=== PATIENT | female | born 1975 | race Caucasian/White ===

== ENCOUNTER 2019-08-11 12:12 | Emergency (ER) | payer SELFPAY ==
[2019-08-11] MEDS ORDERED: ONDANSETRON 4 MG/2 ML VIAL ONE (12:33)
[2019-08-11] MEDS ORDERED: MORPHINE 4 MG/ML SYR ONE (12:33)
[2019-08-11 12:56] LABS: Absolute Lymphocytes (CBC) 2.3 K/uL (0.7-4.9); Basophils % 0.7 % (0-1.3); Hematocrit 36.1 % (36.0-45.0); Lymphocytes % 19.9 % (15.3-44.8); MPV 8.1 fL (7.6-11.3); RBC Red Blood Cell Count 3.74 M/uL (3.86-4.86)
[2019-08-11 13:13] LABS: Potassium 4.1 mmol/L (3.5-5.1)
[2019-08-11] MEDS ORDERED: FENTANYL CITR 100 MCG/2 ML ONE (13:22)
[2019-08-11] MEDS ORDERED: KETOROLAC 30 MG/ML INJ ONE (13:22)
[2019-08-11] MEDS ORDERED: HYDROMORPHONE HCL 1 MG/ML INJ ONE ×2 (13:53→15:20)
[2019-08-11 14:11] LABS: Urine Blood 1+ (NEG); Urine Glucose NEGATIVE (NEG); Urine Protein TRACE (NEG); Urine Specific Gravity >1.030 (1.005-1.030); Urine pH 5.5 (5.0-7.0)
--- NOTE | 2019-08-11 14:27 | RAD REPORT ---
EXAM DESCRIPTION: CT - Stone Protocol - 08/11/2019 1:35 pm CLINICAL HISTORY: Abdominal pain, left flank pain COMPARISON: April 2011 CT imaging TECHNIQUE: Axial 5 mm thick images were obtained without oral or IV contrast. The [id number] span s the entirety of the system including uppermost abdomen and lung bases. All CT scans are performed using dose optimization technique as appropriate and may include automated exposure control or mA/KV adjustment according to patient size. FINDINGS: Mild left-sided hydronephrosis is present secondary to a 3 mm stone at the UVJ. Stone proj ects partly into the bladder lumen. At 5 millimeter parenchymal calcification is present lower pole l eft kidney. No other renal calculi. No other bladder calculi. Numerous phleboliths are seen along the pelvic floor. Uterus is absent. Ovaries are absent or atrophic. An adnexal mass is not identified. No suspicious re nal masses. Isodense masses and pyelonephritis are not excluded on a stone protocol CT scan. No urina ry bladder suspicious finding. No significant adrenal finding. Imaged portions of the liver, spleen and pancreas show no suspicious findings on non-contrast imaging . No gallbladder or biliary tree abnormality identified. No suspicious bowel findings. No hernia, mass or bulky lymphadenopathy noted. No free air, free fluid or inflammatory stranding. No significant bony abnormality. IMPRESSION: Mild left-sided hydronephrosis secondary to a 3 mm stone at the left UVJ. Isodense masses and pyelonephritis are not excluded on stone protocol technique.
--- NOTE | 2019-08-11 15:17 | ER ---
Nurse's Notes [facility] Name: Heather Nixon Age: 43 yrs Sex: Female : 1975 Arrival Date: 08/11/2019 Time: 12:14 Bed 18 Private MD: Obed Wong H Diagnosis: left UVJ stone with associated hydrnephrosis;ureterolithiasis Presentation: 08/11 12:29 Presenting complaint: Patient states: severe left flank pain, hx of stones. Transition la1 of care: patient was not received from another setting of care. Onset of symptoms was August 11, 2019. Risk Assessment: Do you want to hurt yourself or someone else? Patient reports no desire to harm self or others. Initial Sepsis Screen: Does the patient meet any 2 criteria? No. Patient's initial sepsis screen is negative. Does the patient have a suspected source of infection? No. Patient's initial sepsis screen is negative. Care prior to arrival: None. 12:29 Method Of Arrival: Ambulatory la1 12:29 Acuity: KASHIF 3 la1 Triage Assessment: 12:30 General: Appears in no apparent distress. uncomfortable, Behavior is cooperative, bp appropriate for age, anxious. Pain: Complains of pain in back. EENT: No deficits noted. Neuro: No deficits noted. Cardiovascular: No deficits noted. Respiratory: No deficits noted. GI: No signs and/or symptoms were reported involving the gastrointestinal system. : Reports pain flank(s). Derm: No deficits noted. Musculoskeletal: No deficits noted. 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 - Social history:: Smoking status: Patient/guardian denies using tobacco. - Ebola Screening: : No symptoms or risks identified at this time. - Family history:: not pertinent. - Hospitalizations: : No recent hospitalization is reported. Screenin:38 Abuse screen: Denies threats or abuse. Nutritional screening: No deficits noted. la1 Tuberculosis screening: No symptoms or risk factors identified. Fall Risk None identified. Assessment: 12:37 General: Appears in no apparent distress. uncomfortable, Behavior is cooperative, la1 anxious. Pain: Complains of pain in back and abdomen. Neuro: Level of Consciousness is awake, alert, obeys commands, Oriented to person, place, time, situation. Cardiovascular: Capillary refill < 3 seconds Patient's skin is warm and dry. Respiratory: Airway is patent Respiratory effort is even, unlabored, Respiratory pattern is regular, symmetrical. GI: Abdomen is round non-distended, Bowel sounds present X 4 quads. Abd is soft and non tender X 4 quads. : No signs and/or symptoms were reported regarding the genitourinary system. 13:30 Reassessment: PT RETURNED FROM CT, RESULTS PENDING. bp 15:37 Reassessment: PT D/C HOME AMBULATORY WITH FAMILY, DX WITH OBSTRUCTIVE UVJ STONE. bp Vital Signs: 12:30 BP 109 / 74; Pulse 74; Resp 16; Temp 97.4; Pulse Ox 100% on R/A; la1 13:48 BP 127 / 78; Pulse 77; Resp 16; Pulse Ox 97% ; bp 14:30 BP 125 / 64; Pulse 67; Resp 16; Pulse Ox 98% ; bp 15:36 BP 130 / 73; Pulse 74; Resp 16; Temp 97.5; Pulse Ox 97% ; bp ED Course: 12:14 Patient arrived in ED. mr 12:15 Obed Wong DO is Private Physician. mr 12:30 Triage completed. la1 12:31 Arm band placed on right wrist. la1 12:36 Inserted saline lock: 20 gauge in right antecubital area, using aseptic technique. la1 Blood collected. 12:38 Patient has correct armband on for positive identification. la1 12:54 Dean Limon, [place] is Primary Nurse. bp 13:00 Sabas Molina MD is Attending Physician. wa 13:36 CT Stone Protocol In Process Unspecified. EDMS 15:15 Vernon Woodall MD is Referral Physician. wa 15:31 No provider procedures requiring assistance completed. IV discontinued, intact, bp bleeding controlled, No redness/swelling at site. Pressure dressing applied. Administered Medications: 12:36 Drug: morphine 4 mg Route: IVP; Site: right antecubital; la1 13:45 Follow up: Response: Pain is decreased bp 12:36 Drug: Zofran 4 mg Route: IVP; Site: right antecubital; la1 13:45 Follow up: Response: Nausea is decreased bp 13:29 Drug: TORadol 30 mg Route: IVP; Site: right antecubital; ph 13:45 Follow up: Response: Pain is decreased bp 13:29 Drug: fentaNYL (PF) 75 mcg Route: IVP; Site: right antecubital; ph 13:45 Follow up: Response: Pain is decreased bp 14:01 Drug: Dilaudid 1 mg Route: IVP; Site: right antecubital; bp 15:16 Follow up: Response: Pain is decreased bp 15:23 Drug: Dilaudid 1 mg Route: IVP; Site: right antecubital; bp 15:37 Follow up: Response: Pain is decreased bp Outcome: 15:16 Discharge ordered by . rachel 15:36 Discharged to home ambulatory, with family. bp 15:36 Condition: stable 15:36 Discharge instructions given to patient, Instructed on discharge instructions, follow up and referral plans. medication usage, Demonstrated understanding of instructions, follow-up care, medications, Prescriptions given X 4. 15:37 Patient left the ED. bp Signatures: Dispatcher [employer] ED Emi Herrera Gregory Carlin RN RN laDori Arguelles RN RN Sabas Molina MD MD wa Peltier, Brian RN RN bp
--- NOTE | 2019-08-11 15:17 | EDPHYS ---
Physician Documentation [facility] Name: Heather Nixon Age: 43 yrs Sex: Female : 1975 Arrival Date: 08/11/2019 Time: 12:14 Bed 18 Private MD: Obed Wong H ED Physician Sabas Molina HPI: 08/11 14:09 This 43 yrs old Female presents to ER via Ambulatory with complaints of wa Possible Kidney Stone. 14:09 The patient complains of pain in the left flank. Onset: The symptoms/episode wa began/occurred suddenly. Modifying factors: The symptoms are alleviated by nothing. the symptoms are aggravated by nothing. Associated signs and symptoms: Pertinent positives: nausea, Pertinent negatives: dysuria, fever. Severity of pain: At its worst the pain was severe in the emergency department the pain is unchanged. The patient has experienced similar episodes in the past, multiple times, h/o kidney stones. has had lithotripsy and stents in the past. The patient has not recently seen a physician. 43 yo F. h/o kidney stones, with multiple procedures. presents w/ L flank pain that radiates to L groin. assoc with nausea. 14:18 Location: left groin. 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 - Social history:: Smoking status: Patient/guardian denies using tobacco. - Ebola Screening: : No symptoms or risks identified at this time. - Family history:: not pertinent. - Hospitalizations: : No recent hospitalization is reported. ROS: 14:24 Constitutional: Negative for fever, chills, and weight loss, Eyes: Negative for injury, wa pain, redness, and discharge, ENT: Negative for injury, pain, and discharge, Neck: Negative for injury, pain, and swelling, Cardiovascular: Negative for chest pain, palpitations, and edema, Respiratory: Negative for shortness of breath, cough, wheezing, and pleuritic chest pain, MS/Extremity: Negative for injury and deformity, Skin: Negative for injury, rash, and discoloration, Neuro: Negative for headache, weakness, numbness, tingling, and seizure. 14:24 Abdomen/GI: Positive for nausea, L flank pain, Negative for vomiting, diarrhea. 14:24 Back: Positive for flank pain, on the left. 14:24 : Negative for urinary frequency, hematuria. 14:24 All other systems are negative. Exam: 14:25 Constitutional: This is a well developed, well nourished patient who is awake, alert, wa and in no acute distress. Head/Face: Normocephalic, atraumatic. Eyes: Pupils equal round and reactive to light, extra-ocular motions intact. Lids and lashes normal. Conjunctiva and sclera are non-icteric and not injected. Cornea within normal limits. Periorbital areas with no swelling, redness, or edema. ENT: Nares patent. No nasal discharge, no septal abnormalities noted. Tympanic membranes are normal and external auditory canals are clear. Oropharynx with no redness, swelling, or masses, exudates, or evidence of obstruction, uvula midline. Mucous membranes moist. Neck: Trachea midline, no thyromegaly or masses palpated, and no cervical lymphadenopathy. Supple, full range of motion without nuchal rigidity, or vertebral point tenderness. No Meningismus. Chest/axilla: Normal chest wall appearance and motion. Nontender with no deformity. No lesions are appreciated. Cardiovascular: Regular rate and rhythm with a normal S1 and S2. No gallops, murmurs, or rubs. Normal PMI, no JVD. No pulse deficits. Respiratory: Lungs have equal breath sounds bilaterally, clear to auscultation and percussion. No rales, rhonchi or wheezes noted. No increased work of breathing, no retractions or nasal flaring. Back: No spinal tenderness. No costovertebral tenderness. Full range of motion. Skin: Warm, dry with normal turgor. Normal color with no rashes, no lesions, and no evidence of cellulitis. MS/ Extremity: Pulses equal, no cyanosis. Neurovascular intact. Full, normal range of motion. Neuro: Awake and alert, GCS 15, oriented to person, place, time, and situation. Cranial nerves II-XII grossly intact. Motor strength 5/5 in all extremities. Sensory grossly intact. Cerebellar exam normal. Normal gait. Psych: Awake, alert, with orientation to person, place and time. Behavior, mood, and affect are within normal limits. 14:25 Abdomen/GI: Inspection: abdomen appears normal, Bowel sounds: normal, in all quadrants, Palpation: soft, mild abdominal tenderness, in the left upper quadrant and left lower quadrant. Vital Signs: 12:30 BP 109 / 74; Pulse 74; Resp 16; Temp 97.4; Pulse Ox 100% on R/A; la1 13:48 BP 127 / 78; Pulse 77; Resp 16; Pulse Ox 97% ; bp 14:30 BP 125 / 64; Pulse 67; Resp 16; Pulse Ox 98% ; bp 15:36 BP 130 / 73; Pulse 74; Resp 16; Temp 97.5; Pulse Ox 97% ; bp MDM: 13:00 Patient medically screened. az 14:25 Differential diagnosis: nephrolithiasis, pyelonephritis, UTI, diverticulitis. wa 15:13 Data reviewed: vital signs, nurses notes. Test interpretation: by ED physician or wa midlevel provider: noted hematuria. CT abd/pelvis: L UVJ 3 mm stone with assoc hydro.. Response to treatment: the patient's symptoms have mildly improved after treatment. 08/11 12:36 Order name: CBC with Diff; Complete Time: 13:14 la1 08/11 12:36 Order name: BMP; Complete Time: 13:14 la1 08/11 12:36 Order name: CT Stone Protocol; Complete Time: 15:04 la1 08/11 14:04 Order name: Urine Dipstick--Ancillary (enter results); Complete Time: 14:27 bd 08/11 14:04 Order name: Urine --Ancillary (enter results); Complete Time: 14:27 bd 08/11 12:45 Order name: Urine Dipstick-Ancillary (obtain specimen); Complete Time: 13:59 la1 Administered Medications: 12:36 Drug: morphine 4 mg Route: IVP; Site: right antecubital; la1 13:45 Follow up: Response: Pain is decreased bp 12:36 Drug: Zofran 4 mg Route: IVP; Site: right antecubital; la1 13:45 Follow up: Response: Nausea is decreased bp 13:29 Drug: TORadol 30 mg Route: IVP; Site: right antecubital; ph 13:45 Follow up: Response: Pain is decreased bp 13:29 Drug: fentaNYL (PF) 75 mcg Route: IVP; Site: right antecubital; ph 13:45 Follow up: Response: Pain is decreased bp 14:01 Drug: Dilaudid 1 mg Route: IVP; Site: right antecubital; bp 15:16 Follow up: Response: Pain is decreased bp 15:23 Drug: Dilaudid 1 mg Route: IVP; Site: right antecubital; bp 15:37 Follow up: Response: Pain is decreased bp Disposition: 08/11/19 15:16 Discharged to Home. Impression: left UVJ stone with associated hydrnephrosis, ureterolithiasis. - Condition is Stable. - Discharge Instructions: Kidney Stones, [id number]-td-Sctx. - Prescriptions for ketorolac 10 mg Oral tablet - take 1 tablet by ORAL route every 8 hours not to exceed 40 mg in 24hrs; 20 tablet. Flomax 0.4 mg Oral Capsule, Sust. Release 24 hr - take 1 capsule by ORAL route once daily for 7 days 1/2 hour following the same meal each day; 7 capsule. Cipro 500 mg Oral Tablet - take 1 tablet by ORAL route every 12 hours for 3 days; 6 tablet. - Medication Reconciliation Form, Thank You Letter, Antibiotic Education, Prescription Opioid Use form. - Follow up: Vernon Woodall MD; When: 2 - 3 days; Reason: Recheck today's complaints. - Problem is new. - Symptoms have improved. - Notes: take medication as prescribed and follow up with the urologist as discussed Signatures: Dispatcher [employer] EDMS Gregory Ramirez RN RN la Dori Dorsey RN RN [facility] MD az Dean Limon RN RN bp Corrections: (The following items were deleted from the chart) 15:37 15:16 08/11/2019 15:16 Discharged to Home. Impression: left UVJ stone with associated bp hydrnephrosis; ureterolithiasis. Condition is Stable. Forms are Medication Reconciliation Form, Thank You Letter, Antibiotic Education, Prescription Opioid Use. Follow up: Vernon Woodall; When: 2 - 3 days; Reason: Recheck today's complaints. Problem is new. Symptoms have improved. rachel
[2019-08-11 16:09] VITALS: BP 130/73; TEMP 97.5; O2SAT 97
== END 2019-08-11 15:37 | disposition home or self-care (01) ==
LOC: ER 12:12
DX: N13.2 Hydronephrosis with renal and ureteral calculous obstruction (principal)
CPT/HCPCS: 36415; 74176; 76377; 80048; 81003; 81025; 85025; 96374; 96375; 99284; J1170; J2405; J3010

== ENCOUNTER 2021-06-06 06:29 | Day surgery (SDC) | payer OTHER ==
[2021-06-01 15:03] LABS: Absolute Lymphocytes (CBC) 1.7 K/uL (0.7-4.9); Basophils % 0.5 % (0-1.3); Hematocrit 37.4 % (36.0-45.0); Lymphocytes % 28.4 % (15.3-44.8); MPV 7.7 fL (7.6-11.3); RBC Red Blood Cell Count 4.04 M/uL (3.86-4.86)
[2021-06-01 15:04] LABS: Protime INR 0.91
[2021-06-01 15:07] LABS: Potassium 4.7 mmol/L (3.5-5.1)
[2021-06-06] MEDS ORDERED: AMPICILLIN SODIUM 2 GM in NA CHLORIDE 0.9% 100 ML IVPB ONE (07:00)
[2021-06-06] MEDS ORDERED: Gentamicin Inj 200 MG in NA CHLORIDE 0.9% 100 ML IV ONE (07:00)
[2021-06-06] MEDS ORDERED: Ringers Lactate 1,000 ML IV ONE (07:06)
[2021-06-06] MEDS ORDERED: FENTANYL CITR 100 MCG/2 ML ONE (07:39)
[2021-06-06] MEDS ORDERED: MIDAZOLAM HCL 2 MG/2 ML INJ ONE (07:39)
[2021-06-06] MEDS ORDERED: LIDOCAINE 1% MPF 5 ML VIAL ONE (07:39)
[2021-06-06] MEDS ORDERED: propofoL 200 MG/20 ML VIAL IV ONE (07:39)
[2021-06-06] MEDS ORDERED: PHENAZOPYRIDINE 100MG TAB PO ONE ×2 (07:42→09:43)
[2021-06-06] MEDS ORDERED: CODEINE 30MG/APAP 300MG TAB PO PRN (07:42)
[2021-06-06] MEDS ORDERED: KETOROLAC 30 MG/ML INJ ONE (08:13)
[2021-06-06] MEDS ORDERED: dexAMETHasone 10 MG/ML VIAL ONE (08:13)
[2021-06-06] MEDS ORDERED: ONDANSETRON 4 MG/2 ML VIAL ONE (08:20)
[2021-06-06] MEDS: MORPHINE 4 MG/ML SYR ONE ×2 (08:23→08:29)
[2021-06-06] MEDS: HYDROMORPHONE HCL 1 MG/ML INJ ONE ×4 (08:34→08:55)
--- NOTE | 2021-06-06 09:04 | RAD REPORT ---
EXAM DESCRIPTION: RAD - Urethrocystogrphy Retrograde - 06/06/2021 8:15 am CLINICAL HISTORY: STENT COMPARISON: No comparisons FINDINGS: Total fluoro time: 0.11 minutes
[2021-06-06] MEDS ORDERED: PROMETHAZINE INJ 25 MG/ML AMP ONE (09:06)
[2021-06-06] MEDS ORDERED: HYDROCODONE/APAP 10/325 TAB ONE (09:51)
[2021-06-06 10:40] VITALS: BP 136/89; TEMP 97.9; O2SAT 97
--- NOTE | 2021-06-06 12:45 | OP ---
Surgeon: TONY FERNANDEZ Preoperative Diagnoses: 1.Left 4 mm ureterolithiasis. 2.Left flank pain. 3.Left 6 mm nephrolithiasis. Postoperative Diagnoses: 1.No stone seen. 2.Khari plaques. Principle Procedures: 1.Cystoscopy. 2.Left retrograde pyelography. 3.Left ureteroscopy with pyeloscopy. 4.Left ureteral stent placement. Indication For Procedure: Ms. Nixon presented to the Urology Clinic with left-sided chronic flank pa in and CT scans performed between here in [facility] that demonstrated the presence of a calculus within the kidney on both occasions and a 4 mm calculus in the ureter on the CT done most recently a t [facility]. As a result, because it had been over 6 weeks since she had failed to pass the sto ne, she was counseled about the recommendation for operative intervention. Her last pain had been ab out a week prior to her visit with me, but she had not passed any stone to her knowledge. It is my u nderstanding she was straining her urine. Procedure In Detail: The patient was consented in the preoperative holding area before being transfe rred to the operative suite where general anesthesia was induced. She was given ampicillin 2 g and g entamicin IV antimicrobial prophylaxis. Pneumo boots were provided for DVT prophylaxis. She was aida valdez in a lithotomy position, padded and secured to the table appropriately. Her genitalia were prepp ed using Hibiclens and she was draped in standard fashion. The case was begun using a 22-Trinidadian rigi d cystoscope to traverse the urethra using the assistance of the obturator for the cystoscope before the bladder could be entered. The bladder was then surveyed in its entirety, and no mucosal lesions, foreign bodies or stones were noted throughout. The ureteral orifices were orthotopic in location a nd the left ureteral orifice was cannulated using a 5-Trinidadian ureteral access catheter with ease. Left retrograde pyelography: Using a 70:30 mixture of Omnipaque and saline, contrast was injected via the 5-Trinidadian ureteral access catheter and did propagate up, but did not appear to be a dilated renal collecting system or ureter. The calices were sharp and well delineated. No filling defect was immediately visible. As a result, because there at least was a stone present in the kidney regardless as to whether the st one might still be obstructing in the ureter, I elected to pass a Sensor wire into the upper pole of the kidney observed fluoroscopically. I then removed the cystoscope and placed a dual-lumen catheter over the Sensor wire into the mid proximal ureter and placed a Bentson guidewire. I then prepared t o perform ureteroscopy to attempt to identify the nephrolithiasis previously seen. The flexible digital ureteroscope was then passed over the Bentson guidewire into the upper pole of t he kidney and then each of the calices was surveyed using pressurized normal saline irrigation. Each of the calices was visualized as evidenced by fluoroscopic imagery confirming that each of the holes and calices of the kidney had indeed been adequately visualized. When no stones were seen within th e calices and only Khari plaques noted within multiple of them, I then backed the scope into the re nal pelvis and surveyed it before surveying down the proximal into the mid and distal ureter. With n o additional stones noted along the entirety of the course, the ureteroscopy was completed. I then b ack-loaded the cystoscope over the indwelling safety wire and passed a 6-Trinidadian by 26 cm double-J lef t ureteral stent into the collecting system with a coil observed fluoroscopically. The stent was lef t on its tether, and this was secured to her introitus using Mastisol and Steri-Strips. Her bladder was decompressed of fluid and urine, and she was taken out of the lithotomy position before being justine kened from general anesthesia, transferred to a stretcher, and then transferred to the recovery room in good condition. Complications: None. Discharge Disposition: She should follow up in the Urology Clinic with nurse practitionerSabrina for stent removal within the next few days as it is tethered. If she has formed stones in the past, given the presence of the Khari plaques, we would suggest she is likely to have more stones form in the future, she should undergo 24-hour urine metabolic profile assessment on 2 occasions with blood work to determine the source of the recurrent stone forming events. WR/MODL Voice ID: [id number] Report ID: [id number]
== END 2021-06-06 10:33 | disposition home or self-care (01) ==
LOC: OR 06:29
PROVIDERS: ATTEND Urology
PROC: 0T778DZ Dilation of Left Ureter with Intraluminal Device, Via Natural or Artificial Opening Endoscopic (ICD-10-PCS; principal; 2021-06-06 07:30)
DX: N20.0 Calculus of kidney (principal); R10.9 Unspecified abdominal pain; Z20.822 Contact with and (suspected) exposure to COVID-19
CPT/HCPCS: 93005; 87088; 85025; 87086; 80048; 36415; 85610; 74450; 51610; 52351; 52332; U0002; J2704; J2550; J1580; J2250; J3010; J1100; J1170 ×2; J7120; J2405; J0290

== ENCOUNTER 2021-06-07 07:32 | Emergency (ER) | payer OTHER ==
--- OUTSIDE RECORDS SUMMARY | 2021-06-07 07:34 | XMS REPORT | Continuity of Care Document ---
:1975 Author Organization [facility] t Address [address] [place] [address] Care Team Providers Name Role Phone Doctor Unassigned, Name Attending Clinician Unavailable Problems This patient has no known problems. Allergies, Adverse Reactions, Alerts This patient has no known allergies or adverse reactions. Medications This patient has no known medications. Procedures This patient has no known procedures. Encounters Start End Encounter Admission Attending Care Care Encounter Source Date/Time Date/Time Type Type Clinicians Facility Department ID 2021-03-30 2021-03-30 Orders Doctor EMILIA [id number] 00:00:00 00:00:00 Only UnassignedTERI [id number] [place] [facility] [id number] 2020-10-24 2020-10-24 Emergency [facility] [id number] 11:25:00 12:09:00 [place] [id number] [place] [id number] [place] [id number] 2020-10-24 2020-10-24 Orders Doctor EMILIA [id number] 00:00:00 00:00:00 Only UnassignedTERI [id number] [place] [facility] [id number] Results This patient has no known results.
[2021-06-07 09:03] LABS: Absolute Lymphocytes (CBC) 2.4 K/uL (0.7-4.9); Basophils % 0.5 % (0-1.3); Hematocrit 39.2 % (36.0-45.0); Lymphocytes % 13.7 % (15.3-44.8); MPV 7.8 fL (7.6-11.3); RBC Red Blood Cell Count 4.24 M/uL (3.86-4.86)
[2021-06-07] MEDS ORDERED: KETOROLAC 30 MG/ML INJ ONE (09:24)
[2021-06-07] MEDS ORDERED: ONDANSETRON 4 MG/2 ML VIAL ONE (09:24)
[2021-06-07 09:26] LABS: ALT/SGPT 42 U/L (12-78); AST/SGOT 17 U/L (15-37); Albumin 3.8 g/dL (3.4-5.0); Alkaline Phosphatase 73 U/L (45-117); BUN Blood Urea Nitrogen 13 mg/dL (7-18); Bicarbonate 26 mmol/L (21-32); Bilirubin Direct < 0.1 mg/dL (0-0.2); Bilirubin Total 0.3 mg/dL (0.2-1.0); Glucose Level 122 mg/dL (74-106); Lipase 63 U/L (73-393); Potassium 4.1 mmol/L (3.5-5.1); Protein, Total 7.7 g/dL (6.4-8.2); Sodium Level 137 mmol/L (136-145)
--- NOTE | 2021-06-07 09:45 | RAD REPORT ---
EXAM DESCRIPTION: CTAbdomen Pelvis W/Wo Contrast - 06/07/2021 9:24 am CLINICAL HISTORY: Abdominal pain. recent stent;Abd pain COMPARISON: Abdomen Pelvis Wo Contrast dated 11/02/2020; Stone Protocol dated 08/11/2019; CT-STONE PROTOCOL dated 04/26/2011; CT-STONE PROTOCOL dated 08/15/2009 TECHNIQUE: Biphasic CT imaging of the abdomen and pelvis was performed with 100 ml non-ionic IV cont rast and without. All CT scans are performed using dose optimization technique as appropriate and may include automated exposure control or mA/KV adjustment according to patient size. FINDINGS: The lung bases are clear. Hepatic steatosis. No focal liver lesions. The spleen, pancreas, adrenal glands, and gallbladder are unremarkable. A left ureteral stent is in place. No hydronephrosis. There is a 3 millimeter calcifica tion overlying the lower pole left kidney which may be parenchymal. No ureteral calculi identified. T here is gas within the bladder which is likely related to instrumentation. Hysterectomy. No bowel obs truction. No evidence appendicitis. No suspicious bony findings. IMPRESSION: Interval placement of a left ureteral stent. No hydronephrosis. No acute findings.
[2021-06-07] MEDS ORDERED: CEFTRIAXONE/SWI 1gm 1 GM/10 ML SYR ONE (09:52)
[2021-06-07] MEDS ORDERED: MORPHINE 4 MG/ML SYR ONE (09:52)
[2021-06-07] MEDS ORDERED: HYDROMORPHONE HCL 1 MG/ML INJ ONE (10:50)
--- NOTE | 2021-06-07 10:51 | EDPHYS ---
Physician Documentation [facility] Name: Heather Nixon Age: 45 yrs Sex: Female : 1975 Arrival Date: 06/07/2021 Time: 07:34 Bed Treatment Private MD: Sabas Reyes E ED Physician Armando Santana HPI: 06/07 10:25 This 45 yrs old Female presents to ER via Ambulatory with complaints of Post jr8 Surgical Pain. 10:25 Onset: The symptoms/episode began/occurred acutely, today. Modifying factors: The jr8 symptoms are alleviated by nothing. the symptoms are aggravated by movement. Associated signs and symptoms: Pertinent positives: nausea, vomiting. Severity of pain: At its worst the pain was moderate in the emergency department the pain is unchanged. The patient has experienced a previous episode. The patient has been recently seen by a physician:. This is a 45-year-old female patient that presented to the emergency room with complaints of left flank pain after a ureteral stent was placed for renal stone. Stated that she has had one in the past but has never had this type of pain. Urology spoke to the emergency room this morning and will work patient up. Historical: - Allergies: 08:43 No Known Allergies; ss - PMHx: 08:43 Crohn's; High Cholesterol; Kidney stones; Lupus; ss - Immunization history:: Adult Immunizations up to date. - Social history:: Smoking status: unknown. ROS: 10:25 Eyes: Negative for injury, pain, redness, and discharge, ENT: Negative for injury, jr8 pain, and discharge, Neck: Negative for injury, pain, and swelling, Cardiovascular: Negative for chest pain, palpitations, and edema, Respiratory: Negative for shortness of breath, cough, wheezing, and pleuritic chest pain, MS/Extremity: Negative for injury and deformity, Skin: Negative for injury, rash, and discoloration, Neuro: Negative for headache, weakness, numbness, tingling, and seizure. 10:25 Abdomen/GI: Positive for nausea and vomiting, Negative for abdominal pain, diarrhea. 10:25 Back: Positive for flank pain, on the left. 10:25 : Positive for urinary symptoms. Exam: 10:25 Cardiovascular: Regular rate and rhythm with a normal S1 and S2. No gallops, murmurs, jr8 or rubs. Normal PMI, no JVD. No pulse deficits. Respiratory: Lungs have equal breath sounds bilaterally, clear to auscultation and percussion. No rales, rhonchi or wheezes noted. No increased work of breathing, no retractions or nasal flaring. Abdomen/GI: Soft, non-tender, with normal bowel sounds. No distension or tympany. No guarding or rebound. No evidence of tenderness throughout. Skin: Warm, dry with normal turgor. Normal color with no rashes, no lesions, and no evidence of cellulitis. MS/ Extremity: Pulses equal, no cyanosis. Neurovascular intact. Full, normal range of motion. Neuro: Awake and alert, GCS 15, oriented to person, place, time, and situation. Cranial nerves II-XII grossly intact. Motor strength 5/5 in all extremities. Sensory grossly intact. 10:25 Constitutional: The patient appears alert, awake, in obvious pain. 10:25 Back: pain, that is moderate, of the left flank, CVA tenderness, that is moderate, is noted on the left. Vital Signs: 08:43 BP 143 / 113; Pulse 103; Resp 21; Temp 98.8(TE); Pulse Ox 97% on R/A; Weight 83.91 kg; ss Height 5 ft. 4 in. (162.56 cm); Pain 10; 08:43 Body Mass Index 31.75 (83.91 kg, 162.56 cm) ss MDM: 08:14 Patient medically screened. jr8 10:25 Data reviewed: vital signs, nurses notes, lab test result(s), radiologic studies, CT jr8 scan. Data interpreted: Pulse oximetry: on room air is 97 %. Interpretation: normal. Counseling: I had a detailed discussion with the patient and/or guardian regarding: the historical points, exam findings, and any diagnostic results supporting the discharge/admit diagnosis, lab results, radiology results, the need for outpatient follow up, a urologist, to return to the emergency department if symptoms worsen or persist or if there are any questions or concerns that arise at home. ED course: Discussed case with Dr. Campos urology. At this time since the CT with and without contrast does not show any acute abnormality I will take the ureteral stent out. Patient is already been covered with antibiotics here and has been medicated with pain and nausea medicine.. ED course: Ureteral stent taken out without any complication. Patient feeling better. We will medicate patient again with pain medicine. Dr. Campos will see her in the clinic today for follow-up.. 06/07 08:50 Order name: Basic Metabolic Panel; Complete Time: 09:27 8 06/07 08:50 Order name: CBC with Diff; Complete Time: 09:21 jr8 06/07 08:50 Order name: Hepatic Function; Complete Time: :8 06/07 08:50 Order name: Lipase; Complete Time: :8 06/07 08:50 Order name: CT Abd/Pelvis- W/WO Contrast; Complete Time: 09:53 jr8 06/07 10:42 Order name: CREATININE WHOLE BLOOD; Complete Time: 10:49 EDMS 06/07 08:50 Order name: IV Saline Lock; Complete Time: 08:52 8 06/07 08:50 Order name: Labs collected and sent; Complete Time: 08:52 8 Administered Medications: 09:25 Drug: Zofran (Ondansetron) 4 mg Route: IVP; Site: right antecubital; ss 10:00 Follow up: Response: No adverse reaction iw 09:27 Drug: Ketorolac 15 mg Route: IVP; Site: right antecubital; ss 09:50 Follow up: Response: No adverse reaction iw 09:35 Drug: Rocephin (cefTRIAXone) 1 grams Route: IV; Rate: calculated rate; Site: right ss antecubital; 10:00 Follow up: IV Status: Completed infusion iw 09:35 Drug: morphine 4 mg Route: IVP; Site: right antecubital; ss 11:00 Follow up: Response: No adverse reaction iw 10:41 Drug: Dilaudid (HYDROmorphone) 1 mg Route: IVP; Site: right antecubital; iw 11:00 Follow up: Response: No adverse reaction; Pain is decreased iw Disposition: 14:57 Co-signature as Attending Physician, Armando Santana MD I agree with the assessment and rn plan of care. Attestation: The patient's history, exam findings, diagnostics, and a summary of any interventions or procedures was reviewed in detail with Ghulam CARREON. Disposition Summary: 06/07/21 10:50 Discharge Ordered Location: Home jr8 Problem: new jr8 Symptoms: have improved jr8 Condition: Stable jr8 Diagnosis - Other mechanical complication of urinary stent jr8 Followup: jr8 - With: Acosta Campos MD - When: 1 - 2 days - Reason: Recheck today's complaints, Continuance of care, Re-evaluation by your physician Discharge Instructions: - Discharge Summary Sheet jr8 - Ureteral Stent Implantation jr8 Forms: - Medication Reconciliation Form jr8 - Thank You Letter jr8 - Antibiotic Education jr8 - Prescription Opioid Use jr8 Prescriptions: - Bactrim DS 800-160 mg Oral Tablet - take 1 tablet by ORAL route every 12 hours for 3 days; 6 tablet; Refills: 0, jr8 Product Selection Permitted Signatures: Dispatcher [employer] Minerva Del Rio, RN Armando Witt MD MD rn Smirch, Shelby, RN RN ss Roszak, Josh, PA PA jr8
--- NOTE | 2021-06-07 10:51 | ER ---
Nurse's Notes [facility] Name: Heather Nixon Age: 45 yrs Sex: Female : 1975 Arrival Date: 06/07/2021 Time: 07:34 Bed Treatment Private MD: Sabas Reyes E Diagnosis: Other mechanical complication of urinary stent Presentation: 06/07 08:42 Chief complaint: Patient states: "I had surgery yesterday. I had a stent put in and I ss called Dr. Campos and he told me to come in. I'm in so much pain, I'm throwing up. Its from my groin to my kidney.". Coronavirus screen: Client denies travel out of the [place] in the last 14 days. Ebola Screen: Patient negative for fever greater than or equal to 101.5 degrees Fahrenheit, and additional compatible Ebola Virus Disease symptoms. Initial Sepsis Screen: Does the patient meet any 2 criteria? No. Patient's initial sepsis screen is negative. Does the patient have a suspected source of infection? No. Patient's initial sepsis screen is negative. Risk Assessment: Do you want to hurt yourself or someone else? Patient reports no desire to harm self or others. Onset of symptoms was June 06, 2021. 08:42 Method Of Arrival: Ambulatory ss 08:42 Acuity: KASHIF 2 ss Historical: - Allergies: 08:43 No Known Allergies; ss - PMHx: 08:43 Crohn's; High Cholesterol; Kidney stones; Lupus; ss - Immunization history:: Adult Immunizations up to date. - Social history:: Smoking status: unknown. Screenin:45 Abuse screen: Denies threats or abuse. Denies injuries from another. Nutritional ss screening: No deficits noted. Tuberculosis screening: Never had TB. Fall Risk None identified. Assessment: 08:45 General: Appears distressed, uncomfortable, Behavior is calm, cooperative, Denies ss fever, feeling ill, fatigue, chills. Pain: Pain currently is 10 out of 10 on a pain scale. Neuro: Level of Consciousness is awake, alert, obeys commands. Cardiovascular: Capillary refill < 3 seconds is brisk in bilateral fingers. GI: No signs and/or symptoms were reported involving the gastrointestinal system. EENT: Oral mucosa is moist. Derm: Skin is intact, is healthy with good turgor, Skin is dry, Skin is pink, warm \\T\\ dry. normal. Musculoskeletal: Circulation, motion, and sensation intact. Range of motion: intact in all extremities, Swelling absent. 08:52 Reassessment: Pt to CT now VIA wheelchair. ss 10:30 Reassessment: Assisted LAURI Parmar with removal of stent. pt tolerated as well as ss expected. Respiratory: Respiratory effort is even, unlabored, Respiratory pattern is regular, symmetrical. 11:14 Reassessment: Patient appears in no apparent distress at this time. Patient and/or ss family updated on plan of care and expected duration. Pain level reassessed. Patient is alert, oriented x 3, equal unlabored respirations, skin warm/dry/pink. Patient states feeling better. Patient states symptoms have improved. Vital Signs: 08:43 BP 143 / 113; Pulse 103; Resp 21; Temp 98.8(TE); Pulse Ox 97% on R/A; Weight 83.91 kg; ss Height 5 ft. 4 in. (162.56 cm); Pain 10/10; 08:43 Body Mass Index 31.75 (83.91 kg, 162.56 cm) ED Course: 07:34 Patient arrived in ED. mr 07:34 Sabas Reyes MD is Private Physician. mr 07:58 Ghulam Rm PA is [facility]. jr8 07:58 Armando Santana MD is Attending Physician. jr8 08:43 Triage completed. ss 08:43 Arm band placed on right wrist. ss 08:45 Patient has correct armband on for positive identification. Bed in low position. Call ss light in reach. 08:52 Inserted saline lock: 22 gauge in right antecubital area, using aseptic technique. ss Blood collected. 09:23 CT Abd/Pelvis- W/WO Contrast In Process Unspecified. EDMS 09:27 Kellie Patel, [place] is Primary Nurse. ss 10:50 Acosta Campos MD is Referral Physician. jr8 11:13 No provider procedures requiring assistance completed. IV discontinued, intact, ss bleeding controlled, No redness/swelling at site. Pressure dressing applied. Administered Medications: 09:25 Drug: Zofran (Ondansetron) 4 mg Route: IVP; Site: right antecubital; ss 10:00 Follow up: Response: No adverse reaction iw 09:27 Drug: Ketorolac 15 mg Route: IVP; Site: right antecubital; ss 09:50 Follow up: Response: No adverse reaction iw 09:35 Drug: Rocephin (cefTRIAXone) 1 grams Route: IV; Rate: calculated rate; Site: right ss antecubital; 10:00 Follow up: IV Status: Completed infusion iw 09:35 Drug: morphine 4 mg Route: IVP; Site: right antecubital; ss 11:00 Follow up: Response: No adverse reaction iw 10:41 Drug: Dilaudid (HYDROmorphone) 1 mg Route: IVP; Site: right antecubital; iw 11:00 Follow up: Response: No adverse reaction; Pain is decreased iw Outcome: 10:50 Discharge ordered by MD. meza 11:13 Discharged to home ambulatory. ss 11:13 Condition: good 11:13 Discharge instructions given to patient, Instructed on discharge instructions, follow up and referral plans. medication usage, Demonstrated understanding of instructions, follow-up care, medications, Prescriptions given X 1. 11:29 Patient left the ED. iw Signatures: Dispatcher [employer] VIVIANNY Emi Herrera Irene, RN [place] iw Kellie Patel RN RN ss Roszak, Josh, PA PA jr8
[2021-06-07 11:33] VITALS: BP 143/113; TEMP 98.8; O2SAT 97
== END 2021-06-07 11:29 | disposition home or self-care (01) ==
LOC: ER 07:32
DX: T83.89XA Other specified complication of genitourinary prosthetic devices, implants and grafts, initial encounter (principal); Z87.442 Personal history of urinary calculi
CPT/HCPCS: 96365; 85025; 80048; 36415; 82565; 80076; 83690; 74178; 96375; 99284; Q9967; J1170; J0696; J2405

== ENCOUNTER 2023-04-30 22:10 | Emergency (ER) | payer OTHER ==
--- OUTSIDE RECORDS SUMMARY | 2023-04-30 22:14 | XMS REPORT | Continuity of Care Document ---
:1975 Author Organization [facility] t Address [address] [facility] [address] [place] [address] Care Team Providers Name Role Phone JORDYN VILLALOBOS Primary Care Physician Ibrahima Benitez MD Attending Clinician RUBY UGARTE Attending Clinician Unavailable Doctor Unassigned, [place] Attending Clinician Unavailable ERLUCYON_R Attending Clinician Unavailable CHARLENE FRASER Attending Clinician Unavailable ERLUCYON_Patricia Admitting Clinician Unavailable CHARLENE FRASER Admitting Clinician Unavailable Payers Payer Name Policy Type Policy Number Effective Date Expiration Date Miladis BOYLE [id number] 2022 HEALTH PLAN 00:00:00 Problems Condition Condition Condition Status Onset Resolution Last Treating Co mments Source Name Details Category Date Date Treatment Clinician Date No known No known Disease Unive rs active active ity of problems problems [facility] Allergies, Adverse Reactions, Alerts Allergy Allergy Status Severity Reaction(s) Onset Inactive Treating Comm ents Source Name Type Date Date Clinician Acetamin Drug Active ophen-Co Allergy 04-12 Health deine 00:00: 00 NO KNOWN Drug Active Univers ALLERGIE Class ity of S [facility] Social History Social Habit Start Date Stop Date Quantity Comments Source Exposure to 2023-03-22 2023-04-01 Not sure [facility] SARS-CoV-2 (event) 00:00:00 13:09:00 Tobacco use and 2019-09-23 2019-09-23 Never used Universit y [facility] exposure 00:00:00 00:00:00 Medical Branch Sex [facility]igned At [birth year] [facility] 00:00:00 00:00:00 Smoking Status Start Date Stop Date Source [facility] Current every day smoker 2019-09-23 00:00:00 [facility] [place] Medications Ordered Filled Start Stop Current Ordering Indication Dosage Frequency Signature Comments Components Source Medication Medication Date Date Medication? Clinician (SIG) Name Name lamoTRIgine 2022- lamotrigin [facility] (LaMICtal 04-12 e ER 50 mg Hea lth XR) 50 mg 17:09: 00:00 tablet,ext tablet 59 :00 ended sustained-r release 24 elease 24 hr hour 24 hr tablet lamoTRIgine 2022- No lamotrigin [facility] (LaMICtal 04-12 e ER 50 mg Hea lth XR) 50 mg 17:09: 00:00 tablet,ext tablet 59 :00 ended sustained-r release 24 elease 24 hr hour 24 hr tablet busPIRone Yes buspirone [facility] (Buspar) 5 04-12 5 mg Health MG tablet 16:26: tablet 42 Vraylar 4.5 Yes Vraylar [facility] MG capsule 04-12 4.5 mg Health 16:26: capsule 42 fenofibrate Yes fenofibrat [facility] (Triglide) 04-12 e 160 mg Healt h 160 MG 16:26: tablet tablet 42 gabapentin Yes gabapentin U [facility] (Neurontin) 04-12 800 mg Health 800 MG 16:26: tablet tablet 42 hydroxychlo Yes hydroxychl UT roquine 04-12 oroquine Health (Plaquenil) 16:26: 200 mg 200 MG 42 tablet tablet ketorolac Yes 2mL 2 mL. [facility] (Toradol) 04-12 Health 60 MG/2ML 16:26: solution 42 Atrovent Yes Atrovent UT HFA 17 - HFA 17 Health MCG/ACT 16:26: mcg/actuat inhaler 42 ion aerosol inhaler meloxicam Yes QD 1 (one) [facility] (Mobic) 15 6-23 time each Heal th MG tablet 16:26: day. 42 omeprazole Yes omeprazole U T (PriLOSEC) 6 [address] 16:26: capsule,de capsule 42 layed release propranolol Yes propranolo [facility] (Inderal) 04-12 l 20 mg Health 20 MG 16:26: tablet tablet 42 Tirzepatide Yes .5mL 0.5 mL. [facility] (Mounjaro) 04-12 Health 10 MG/0.5ML 16:26: solution 42 pen-injecto r busPIRone Yes buspirone [facility] (Buspar) 5 04-12 5 mg Health MG tablet 16:26: tablet 42 Vraylar 4.5 Yes Vraylar [facility] MG capsule 04-12 4.5 mg Health 16:26: capsule 42 fenofibrate Yes fenofibrat [facility] (Triglide) 04-12 e 160 mg Healt h 160 MG 16:26: tablet tablet 42 gabapentin Yes gabapentin U T (Neurontin) 04-12 800 mg Health 800 MG 16:26: tablet tablet 42 hydroxychlo Yes hydroxychl UT roquine 04-12 oroquine Health (Plaquenil) 16:26: 200 mg 200 MG 42 tablet tablet ketorolac Yes 2mL 2 mL. UT (Toradol) 04-12 Health 60 MG/2ML 16:26: solution 42 Atrovent Yes Atrovent UT HFA 17 - HFA 17 Health MCG/ACT 16:26: mcg/actuat inhaler 42 ion aerosol inhaler meloxicam Yes QD 1 (one) UT (Mobic) 15 6-23 time each Heal th MG tablet 16:26: day. 42 omeprazole Yes omeprazole U T (PriLOSEC) 04-12 [address] mg Health [address] 16:26: capsule,de capsule 42 layed release propranolol 2023-0 Yes propranolo UT (Inderal) 6-23 l 20 mg Health 20 MG 16:26: tablet tablet 42 Tirzepatide 2022-0 Yes .5mL 0.5 mL. UT (Mounjaro) 6-23 Health 10 MG/0.5ML 16:26: solution 42 pen-injecto r lamoTRIgine 2022-0 Yes [id number] 100mg QD Take 2 UT (LaMICtal 6-23 tablets Health XR) 50 mg 00:00: (100 mg tablet 00 total) by sustained-r mouth 1 elease 24 (one) time hour 24 hr each day. tablet lamoTRIgine 2022-0 Yes [id number] 100mg QD Take 2 UT (LaMICtal 6-23 tablets Health XR) 50 mg 00:00: (100 mg tablet 00 total) by sustained-r mouth 1 elease 24 (one) time hour 24 hr each day. tablet DULoxetine 2022-0 Yes UT HCl 40 MG 5-27 Health capsule 00:00: delayed-rel 00 ease particles DULoxetine 2022-0 Yes UT HCl 40 MG 5-27 Health capsule 00:00: delayed-rel 00 ease particles amphetamine 2022-0 Yes 1 (one) UT -dextroamph 3-06 time each Hea lth etamine XR 00:00: day at the (Adderall 00 same time. XR) 30 MG 24 hr capsule traMADol 3-0 Yes every 4 UT (Ultram) 50 3-06 (four) Health MG tablet 00:00: hours. 00 amphetamine 3-0 Yes 1 (one) UT -dextroamph 3-06 time each Hea lth etamine XR 00:00: day at the (Adderall 00 same time. XR) 30 MG 24 hr capsule traMADol 3-0 Yes every 4 UT (Ultram) 50 3-06 (four) Health MG tablet 00:00: hours. 00 albuterol 3-0 Yes UT 108 (90 2-22 Health Base) 00:00: MCG/ACT 00 inhaler predniSONE 3-0 Yes UT (Deltasone) 2-22 Health 20 MG 00:00: tablet 00 albuterol 2023-0 Yes UT 108 (90 2-22 Health Base) 00:00: MCG/ACT 00 inhaler predniSONE 3-0 Yes [facility] (Deltasone) 2-22 Health 20 MG 00:00: tablet 00 ciprofloxac Yes [id number] 500mg Take 1 Univers in HCl 500 - tablet by ity of mg tablet 00:00: mouth 2 [place] 00 (two) Medical times Branch daily. ibuprofen Yes [id number] 600mg Take 1 U nivers 600 mg 6- tablet by ity of tablet 00:00: mouth [place] 00 every 6 Medical (six) Branch hours as needed for Pain (scale 4-6). ondansetron Yes [id number] 4mg Take 1 Univers (ZOFRAN 6- tablet by ity of ODT) 4 mg 00:00: mouth [place] disintegrat 00 every 8 Medic al ing tablet (eight) Branch hours as needed for Nausea and Vomiting (N/V). traMADol 2018-10 Yes [id number] 50mg Take 1 Uni vers (ULTRAM) 50 2-04 tablet by ity of mg tablet 00:00: mouth [place] 00 every 6 Medical (six) Branch hours as needed for Pain (scale 7-10). Nitrofurant 2018-10 Yes [id number] 100mg Take 1 Univers oin&Nit. 2-04 capsule by ity o f Macrocryst 00:00: mouth [place] (MACROBID) 00 (two) Medical 100 mg times Branch capsule daily. traMADol 2018-10 Yes [id number] 50mg Take 1 Uni vers (ULTRAM) 50 2-04 tablet by ity of mg tablet 00:00: mouth [place] 00 every 6 Medical (six) Branch hours as needed for Pain (scale 7-10). Nitrofurant 2018-10 Yes [id number] 100mg Take 1 Univers oin&Nit. 2-04 capsule by ity o f [place] 00:00: mouth 2 [place] (MACROBID) 00 (two) Medical 100 mg times Branch capsule daily. traMADol 2018-10 Yes [id number] 50mg Take 1 Uni vers (ULTRAM) 50 2-04 tablet by ity of mg tablet 00:00: mouth [place] 00 every 6 Medical (six) Branch hours as needed for Pain (scale 7-10). Nitrofurant 2018-10 Yes [id number] 100mg Take 1 Univers oin&Nit. 2-04 capsule by ity o f [place] 00:00: mouth 2 [place] (MACROBID) 00 (two) Medical 100 mg times Branch capsule daily. docusate Yes 100mg Take 1 Cap [place] (COLACE) 4-02 by mouth ity of 100 mg 00:00: daily. [place] capsule 00 Medical Branch bisacodyl Yes 10mg Take 2 Univer s (DULCOLAX) 4-02 Tabs by ity of 5 mg EC 00:00: mouth [place] tablet 00 daily as Medical needed for Branch Constipati on. hydrocodone Yes 2{tbl} Take 2 Un [place] -acetaminop 4-02 Tabs by ity o f hen (NORCO 00:00: mouth [place] 5) 5-325 mg 00 every 4 Medic al tablet (four) Branch hours as needed for Pain. rifampin Yes 600mg Take 2 Univer s (RIFADIN) 4-02 Caps by ity of 300 mg 00:00: mouth [place] capsule 00 daily. Medical Branch sulfamethox Yes 1{tbl} Take 1 Tab Univers azole-trime 4-02 by mouth 2 it y of thoprim 00:00: (two) [place] (BACTRIM 00 times Medical SS) 400-80 daily. Branch mg tablet docusate Yes 100mg Take 1 Cap [place] (COLACE) 4-02 by mouth ity of 100 mg 00:00: daily. [place] capsule 00 Medical Branch bisacodyl Yes 10mg Take 2 Univer s (DULCOLAX) 4-02 Tabs by ity of 5 mg EC 00:00: mouth [place] tablet 00 daily as Medical needed for Branch Constipati on. hydrocodone Yes 2{tbl} Take 2 Un [place] -acetaminop 4-02 Tabs by ity o f hen (NORCO 00:00: mouth [place] 5) 5-325 mg 00 every 4 Medic al tablet (four) Branch hours as needed for Pain. rifampin Yes 600mg Take 2 Univer s (RIFADIN) 4-02 Caps by ity of 300 mg 00:00: mouth [place] capsule 00 daily. Medical Branch sulfamethox Yes 1{tbl} Take 1 Tab Univers azole-trime 4-02 by mouth 2 it y of thoprim 00:00: (two) [place] (BACTRIM 00 times Medical SS) 400-80 daily. Branch mg tablet docusate Yes 100mg Take 1 Cap [place] (COLACE) 4-02 by mouth ity of 100 mg 00:00: daily. [place] capsule 00 Medical Branch bisacodyl Yes 10mg Take 2 Univer s (DULCOLAX) 4-02 Tabs by ity of 5 mg EC 00:00: mouth [place] tablet 00 daily as Medical needed for Branch Constipati on. hydrocodone Yes 2{tbl} Take 2 Un [place] -acetaminop 4-02 Tabs by ity o f hen (NORCO 00:00: mouth [place] 5) 5-325 mg 00 every 4 Medic al tablet (four) Branch hours as needed for Pain. rifampin Yes 600mg Take 2 Univer s (RIFADIN) 4-02 Caps by ity of 300 mg 00:00: mouth [place] capsule 00 daily. Medical Branch sulfamethox Yes 1{tbl} Take 1 Tab Univers azole-trime 4-02 by mouth 2 it y of thoprim 00:00: (two) [place] (BACTRIM 00 times Medical SS) 400-80 daily. Branch mg tablet Immunizations Ordered Immunization Filled Immunization Date Status Commen ts Source Name Name COVID-19 Moderna 2021-02-01 [facility] 00:00:00 COVID-19 Moderna 2021-02-01 [facility] (red) 00:00:00 Vital Signs Vital Name Observation Time Observation Value Comments Source Systolic blood 2020-10-24 17:22:00 152 mm[Hg] Univer sity of pressure [facility] Diastolic blood 2020-10-24 17:22:00 84 mm[Hg] Unive rsity of [facility] Heart rate 2020-10-24 17:22:00 103 /min [facility] Body temperature 2020-10-24 17:22:00 36.83 Consuelo [facility] Res[facility] rate 2020-10-24 17:22:00 18 /min [facility] Body weight 2020-10-24 17:22:00 74.844 kg Universi ty [facility] [place] [facility] [place] BMI 2020-10-24 17:22:00 28.32 kg/m2 [facility]i ty [facility] [place] [facility] [place] Oxygen saturation in 2020-10-24 17:22:00 98 /min University of Arterial blood by [facility] Pulse oximetry Branch Systolic blood 2020-10-24 17:22:00 152 mm[Hg] Univer sity of pressure [place] [facility] [place] Diastolic blood 2020-10-24 17:22:00 84 mm[Hg] Unive rsity of pressure [facility] Heart rate 2020-10-24 17:22:00 103 /min [facility] ty [facility] [place] [facility] [place] Body temperature 2020-10-24 17:22:00 36.83 Consuelo [facility] ersity of [facility] Respiratory rate 2020-10-24 17:22:00 18 /min [facility] ersity of [place] [facility] [place] Body weight 2020-10-24 17:22:00 74.844 kg Universi ty of [facility] BMI 2020-10-24 17:22:00 28.32 kg/m2 Universi ty [facility] [place] Oxygen saturation in 2020-10-24 17:22:00 98 /min University of Arterial blood by [facility] Pulse oximetry Branch Procedures Procedure Date / Time Performing Clinician Source Performed AUTHORIZATION FOR 2021-03-30 05:01:00 Doctor Unassigned, No [facility] NOTICE OF PRIVACY 2020-10-24 17:14:02 Doctor Unassigned, No [facility] PR[facility] [place] CONSENT/REFUSAL FOR 2020-10-24 17:13:47 [facility]igned, [facility] Name [facility] [place] Encounters Start End Encounter Admission Attending Care Care Encounter Source Date/Time Date/Time Type Type Clinicians Facility Department ID 2023-04-30 Outpatient [facility] [id number] [place] 20:04:32 [id number] [facility] 2023-04-01 Outpatient [facility] [id number] [place] 13:08:27 [id number] [facility] 2023-03-27 Outpatient [facility] [id number] [place] 20:04:03 [id number] [facility] 2023-03-13 Outpatient [facility] [id number] [place] 08:29:22 [id number] [facility] 2023-03-07 Outpatient [facility] [id number] [place] 08:40:54 [id number] [facility] 2022-12-19 Outpatient [facility] [id number] [place] 14:21:55 [id number] [facility] 2023-04-12 2023-04-12 BINTA Naranjo 6410 [id number] [place] 16:30:00 17:10:03 ne Ibrahima REDDY [id number] [place] [id number] 2023-04-01 2023-04-01 Outpatient [facility] [id number] [place] 13:30:00 15:16:09 [facility] 2023-03-25 2023-03-25 Outpatient [facility] [id number] [place] 13:30:00 13:30:00 [facility] 2023-02-18 2023-02-18 Outpatient [facility] [id number] [place] 13:00:00 13:00:00 [facility] 2021-03-30 2021-03-30 Orders Doctor EMILIA [id number] 00:00:00 00:00:00 Only Unassigned, TER[id number] [id number] 2021-03-30 2021-03-30 Orders Doctor EMILIA [id number] Univers 00:00:00 00:00:00 Only Unassigned, TERI [id number] [facility] [id number] [place] as [id number] [address] 2021-03-21 2021-03-21 Emergency X [facility] ERT [id number] Univers 18:52:00 18:52:00 ity of [facility] 2021-03-16 2021-03-16 Outpatient [facility] [id number] [place] 10:43:00 10:43:00 [facility] 2020-10-24 2020-10-24 Emergency [facility] [id number] 11:25:00 12:09:00 [place] [id number] [place] [id number] [place] [id number] 2020-10-24 2020-10-24 Emergency [facility] [id number] Univers 11:25:00 12:09:00 [place] [id number] i ty of [place] [id number] [place] [id number] [place] [id number] Branch 2020-10-24 2020-10-24 Emergency X [facility] ERT [id number] Univers 11:25:00 11:25:00 ity [facility] 2020-10-24 2020-10-24 Orders Doctor NIETO [id number] 00:00:00 00:00:00 Only Unassigned, TERI [id number] [place] [facility] [id number] 2020-10-24 2020-10-24 Orders Doctor NIETO [id number] Univers 00:00:00 00:00:00 Only Unassigned, TERI [id number] ity of [place] [facility] [id number] [place] [id number] [place] [address] Branch 2019-09-22 2019-09-23 Emergency X [facility] ERT [id number] Univers 23:13:36 01:14:00 CHARLENE [facility] Results This patient has no known results. Notes Date/Time Note Provider Source 2023-04-12 Addended by: ERLINDA TRIMBLE on: 04/15/2023 08:14 AM [facility] 16:30:00-00:00 [facility] C enter at Modules accepted: Orders [place] Electronically signed by Erlinda Trimble MA at 8:14 AM CDT
[2023-04-30] MEDS ORDERED: ONDANSETRON 4 MG/2 ML VIAL ONE (22:38)
[2023-04-30] MEDS ORDERED: KETOROLAC 30 MG/ML INJ ONE (22:38)
[2023-04-30] MEDS ORDERED: MORPHINE 4 MG/ML SYR ONE ×2 (22:38→23:44)
[2023-04-30] MEDS ORDERED: NA CHLORIDE 0.9% 1,000 ML ONE (22:39)
[2023-04-30] MEDS ORDERED: LORazepam 2 MG/ML VIAL ONE (22:40)
[2023-04-30 22:47] LABS: Hematocrit 38.1 % (36.0-45.0); Lymphocytes % 40.7 % (15.3-44.8); MCV 95.3 fL (80-100); MPV 7.8 fL (7.6-11.3); Potassium 3.8 mEq/L (3.5-5.1)
--- NOTE | 2023-05-01 00:52 | EDPHYS ---
Physician Documentation [facility] Name: Heather Nixon Age: 47 yrs Sex: Female : 1975 Arrival Date: 04/30/2023 Time: 22:10 Bed 20 Private MD: ED Physician Mark Guajardo HPI: 04/30 22:14 This 47 yrs old Female presents to ER via Unassigned with complaints of sp4 Probable Seizure, Fall Injury, Head Injury-Adult. 05/01 00:40 This is a very pleasant female 47 years of age presents with a cute onset of possible sp4 seizure at home. Patient states that she has had a type of syncopal episode usually happens when she has seizures. Patient found herself laying on the porch with moderate to severe headache to the right parietal area. Patient denied any vomiting. Patient states she takes lamotrigine for seizures and she is compliant with her medication. . 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 - Social history:: Smoking status: Patient denies any tobacco usage or history of. - Family history:: not pertinent. ROS: 05/01 00:40 Constitutional: Negative for fever, chills, and weight loss, positive headache, sp4 positive head injury, positive seizure Eyes: Negative for injury, pain, redness, and discharge, ENT: Negative for injury, pain, and discharge, Neck: Negative for injury, pain, and swelling, Cardiovascular: Negative for chest pain, palpitations, and edema, Respiratory: Negative for shortness of breath, cough, wheezing, and pleuritic chest pain, Abdomen/GI: Negative for abdominal pain, nausea, vomiting, diarrhea, and constipation, Back: Negative for injury and pain, : Negative for injury, bleeding, discharge, and swelling, MS/Extremity: Negative for injury and deformity, Skin: Negative for injury, rash, and discoloration, Neuro: Negative for weakness, numbness, tingling, positive headache and positive seizure, positive right parietal headache Psych: Negative for depression, anxiety, Allergy/Immunology: Negative for hives, rash, and allergies Endocrine: Negative for neck swelling, polydipsia, polyuria, polyphagia, and weight changes Hematologic/Lymphatic: Negative for swollen nodes, abnormal bleeding, and unusual bruising Exam: 00:40 Constitutional: This is a well developed, well nourished patient who is awake, alert, sp4 and in no acute distress, but uncomfortable appearing secondary to the headache. Head/Face: Normocephalic, positive for right parietal scalp contusion and tenderness. No hematoma or laceration Eyes: Pupils equal round and reactive to light, extra-ocular motions intact. Lids and lashes normal. Conjunctiva and sclera are not injected. Cornea within normal limits. Periorbital areas with no swelling, redness, or edema. ENT: Nares patent. No nasal discharge, no septal abnormalities noted. Tympanic membranes are normal and external auditory canals are clear. Oropharynx with no redness, swelling, or masses, exudates, or evidence of obstruction, uvula midline. Mucous membranes moist. Neck: Trachea midline, no thyromegaly or masses palpated, and no cervical lymphadenopathy. Supple, full range of motion without nuchal rigidity, or vertebral point tenderness. Chest/axilla: Normal chest wall appearance and motion. Nontender with no deformity. No lesions are appreciated. Cardiovascular: Regular rate and rhythm with a normal S1 and S2. No gallops, murmurs, or rubs. Normal PMI, no JVD. No pulse deficits. Respiratory: Lungs have equal breath sounds bilaterally, clear to auscultation and percussion. No rales, rhonchi or wheezes noted. No increased work of breathing, no retractions or nasal flaring. Abdomen/GI: Soft, non-tender, with normal bowel sounds. No distension or tympany. No guarding or rebound. No evidence of tenderness throughout. Back: No spinal tenderness. No costovertebral tenderness. Skin: Warm, dry with normal turgor. Normal color with no rashes, no lesions, and no evidence of cellulitis. MS/ Extremity: Pulses equal, no cyanosis. Neurovascular intact. Full, normal range of motion. Neuro: Awake and alert, GCS 15, oriented to person, place, time, and situation. Cranial nerves II-XII grossly intact. Motor strength 5/5 in all extremities. Sensory grossly intact. Psych: Awake, alert, with orientation to person, place and time. Positive for emotional upset Vital Signs: 04/30 22:20 BP 153 / 96; Pulse 111; Resp 20; Temp 97.1; Pulse Ox 99% ; Weight 63.5 kg; Height 5 ft. vc1 4 in. ; Pain 8/10; 22:43 BP 98 / 55; Pulse 78; Resp 18; kl 23:59 BP 126 / 76; kl 05/01 00:59 BP 128 / 88; Pulse 80; Resp 18; Pulse Ox 99% on R/A; kl 04/30 22:20 Body Mass Index 24.03 (63.50 kg, 162.56 cm) vc1 04/30 22:20 Pain Scale: Adult vc1 NIH Stroke Scale Scores: 00:40 NIHSS Score: 0 sp4 Augusto Coma Score: 04/30 22:24 Eye Response: spontaneous(4). Motor Response: obeys commands(6). Verbal Response: vc1 oriented(5). Total: 15. 05/01 00:40 Eye Response: spontaneous(4). Motor Response: obeys commands(6). Verbal Response: sp4 oriented(5). Total: . 04/30 22:24 oriented but not forming complete sentences vc1 MDM: 22:40 Patient medically screened. sp4 05/01 00:34 ED course: COMPARISON: No relevant prior studies available. FINDINGS: BRAIN: sp4 Unremarkable. No hemorrhage. No significant white matter disease. No edema. VENTRICLES: Unremarkable. No ventriculomegaly. SKULL: No acute fracture. SINUSES: Unremarkable as visualized. No acute sinusitis. MASTOID AIR CELLS: Unremarkable as visualized. No mastoid effusion. VERTEBRAE: Straightening of the normal cervical curvature is present. The vertebral body heights and alignment are maintained. There is no acute fracture. DISCS/SPINAL CANAL/NEURAL FORAMINA: The intervertebral disc spaces are maintained. No spinal canal stenosis. SOFT TISSUES: The soft tissues are normal. LUNG APICES: Unremarkable as visualized. IMPRESSION: 1. No acute intracranial findings. 2. Straightening of the normal cervical curvature is present. Findings may be secondary to patient position versus muscle spasm. . 00:40 Differential diagnosis: drug overdose, cardiac arrhythmia, seizure, TIA. Data reviewed: sp4 vital signs, nurses notes, old medical records, lab test result(s), radiologic studies, CT scan. Consideration of Admission/Observation Escalation of care including admission/observation considered. ED course: CT is unremarkable at this time. Headache is improved after medications. Patient will be advised to see her neurologist for adjustment of her medication. At this time patient is stable to go home with p.o. as needed Fioricet for headache. Likely posttraumatic headache secondary to the head injury after a fall reports.. 04/30 22:19 Order name: Basic Metabolic Panel; Complete Time: 00:34 sp4 04/30 22:19 Order name: CBC with Diff; Complete Time: 00:34 4 04/30 22:19 Order name: Lactate w/ 2H reflex if indic.; Complete Time: 00:34 4 04/30 22:19 Order name: CT Head C Spine [facility] 04/30 22:19 Order name: Labs collected and sent [facility] Administered Medications: 04/30 22:30 Drug: NS 0.9% IV 1000 ml Route: IV; Rate: 1 bolus; Site: right antecubital; 05/01 00:56 Follow up: IV Status: Completed infusion; IV Intake: 1000ml 04/30 22:30 Drug: morphine IVP or IV 4 mg Route: IVP; Infused Over: 4 mins; Site: right antecubital; 05/01 01:22 Follow up: Response: No adverse reaction 04/30 22:35 Drug: Ondansetron IVP 4 mg Route: IVP; Site: right antecubital; 05/01 01:22 Follow up: Response: No adverse reaction 04/30 22:38 Drug: Ketorolac IVP 30 mg Route: IVP; Site: right antecubital; 05/01 01:22 Follow up: Response: No adverse reaction 04/30 22:41 Drug: Ativan IVP 1 mg Route: IVP; Site: right antecubital; 05/01 01:22 Follow up: Response: No adverse reaction 04/30 23:38 Drug: morphine IVP or IV 4 mg Route: IVP; Infused Over: 4 mins; Site: right antecubital; 05/01 01:22 Follow up: Response: No adverse reaction; Pain is decreased kl 00:50 Drug: metoCLOPramide IVP 10 mg Route: IVP; Site: right antecubital; kl 01:22 Follow up: Response: No adverse reaction kl Disposition Summary: 05/01/23 00:51 Discharge Ordered Location: Home sp4 Problem: new sp4 Symptoms: have improved sp4 Condition: Stable sp4 Diagnosis - Acute fall, acute head injury, recurrent seizure, breakthrough seizure, sp4 posttraumatic headache Followup: sp4 - With: Private Physician - When: 2 - 3 days - Reason: Recheck today's complaints Discharge Instructions: - Discharge Summary Sheet sp4 - Seizure, Adult, [id number] sp4 Forms: - Patient Portal [email or web address] sp4 Prescriptions: - Fioricet 50-300-40 mg Oral capsule - take 1 capsule by ORAL route every 8 hours PRN headache; 20 capsule; Refills: sp4 0, Product Selection Permitted NIH Stroke Scale - NIH Stroke Score Date: 05/01/2023 Time: 00:40 Total Score = 0 10. Dysarthria (speech clarity - read or repeat words) - 0(Normal) 11. Extinction and Inattention (visual/tactile/auditory/spatial/personal) - 0(No abnormality) 1a. Level of Consciousness (LOC) - 0(Alert) 1b. Level of Consciousness (LOC) (Month \T\ Age) - 0(Both) 1c. LOC Commands (Open \T\ Closes Eyes/Book Repairer) - 0(Both) 2. Best Gaze (Lateral Gaze Paresis) - 0(Normal) 3. Visual Field Loss - 0(No visual loss) 4. Facial Palsy - 0(Normal) 5a. Left Arm: Motor (10-second hold) - 0(No drift) 5b. Right Arm: Motor (10-second hold) - 0(No drift) 6a. Left Leg: Motor (5-second hold - always test supine) - 0(No drift) 6b. Right Leg: Motor (5-second hold - always test supine) - 0(No drift) 7. Limb Ataxia (finger/nose \T\ heel/bailon - test with eyes open) - 0(Absent) 8. Sensory Loss (pinprick arms/legs/face) - 0(Normal) 9. Best Language: Aphasia (description/naming/reading) - 0(No aphasia) Initials: sp4 Signatures: Dispatcher [employer] Sanam Paula, RN RN Maria Alejandra Helm RN RN vc1 Mark Guajardo MD MD sp4 Corrections: (The following items were deleted from the chart) 04/30 22:22 Allergies: No Known Allergies; vc1 vc1 22: Allergies: lamotrigine; vc1 vc1
--- NOTE | 2023-05-01 00:52 | ER ---
Nurse's Notes [facility] Name: Heather Nixon Age: 47 yrs Sex: Female : 1975 Arrival Date: 04/30/2023 Time: 22:10 Bed 20 Private MD: Diagnosis: Acute fall, acute head injury, recurrent seizure, breakthrough seizure, posttraumatic headache Presentation: 04/30 22:20 Chief complaint: Patient states: I had a seizure and fell and hit my head on the vc1 concrete porch. I'm not sure if I had a seizure and fell or had a seizure after falling. Coronavirus screen: Vaccine status: Patient reports being unvaccinated. Client denies travel out of the [place] in the last 14 days. At this time, the client does not indicate any symptoms associated with coronavirus-19. Ebola Screen: Patient negative for fever greater than or equal to 101.5 degrees Fahrenheit, and additional compatible Ebola Virus Disease symptoms Patient denies exposure to infectious person. Patient denies travel to an Ebola-affected area in the 21 days before illness onset. No symptoms or risks identified at this time. Initial Sepsis Screen: Does the patient meet any 2 criteria? HR > 90 bpm. No. Patient's initial sepsis screen is negative. Does the patient have a suspected source of infection? No. Patient's initial sepsis screen is negative. Risk Assessment: Do you want to hurt yourself or someone else? Patient reports no desire to harm self or others. Onset of symptoms was April 30, 2023 at 20:30. 22:20 Method Of Arrival: Wheelchair vc1 22:20 Acuity: KASHIF 3 vc1 Triage Assessment: 22:24 General: Appears in no apparent distress. uncomfortable, Behavior is anxious. Pain: vc1 Complains of pain in right frontal area and right side of the back of head Pain does not radiate. Pain currently is 8 out of 10 on a pain scale. Quality of pain is described as burning. EENT: No deficits noted. No signs and/or symptoms were reported regarding the EENT system. Neuro: Level of Consciousness is awake, alert, obeys commands, Oriented to person, place, time, situation, Appropriate for age Speech is slurred. Cardiovascular: No deficits noted. Respiratory: No deficits noted. GI: No deficits noted. No signs and/or symptoms were reported involving the gastrointestinal system. : No deficits noted. No signs and/or symptoms were reported regarding the genitourinary system. Derm: No deficits noted. No signs and/or symptoms reported regarding the dermatologic system. Musculoskeletal: No deficits noted. No signs and/or symptoms reported regarding the musculoskeletal system. 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 - Social history:: Smoking status: Patient denies any tobacco usage or history of. - Family history:: not pertinent. Screenin:[facility] ED Fall Risk Assessment (Adult) History of falling in the last 3 months, vc1 including since admission Yes- physiologic fall (2 pts) Confusion or Disorientation No (0 pts) Intoxicated or Sedated No (0 pts) Impaired Gait No (0 pts) Mobility Assist Device Used No (0 pt) Altered Elimination No (0 pt) Score/Fall Risk Level 0 - 2 = Low Risk Oriented to surroundings, Maintained a safe environment, Educated pt \\T\\ family on fall prevention, incl call for assistance when getting out of bed. Abuse screen: Denies threats or abuse. Nutritional screening: No deficits noted. Tuberculosis screening: No symptoms or risk factors identified. Assessment: 22:43 Reassessment: Patient states feeling better. Patient states symptoms have improved. 05/01 00:58 Neuro: Level of Consciousness is awake, alert, obeys commands, Oriented to person, kl place, time, situation, Speech is normal, Facial symmetry appears normal, pt reports "I just dont feel right" notified . Vital Signs: 04/30 22:20 BP 153 / 96; Pulse 111; Resp 20; Temp 97.1; Pulse Ox 99% ; Weight 63.5 kg; Height 5 ft. vc1 4 in. ; Pain 8/10; 22:43 BP 98 / 55; Pulse 78; Resp 18; kl 23:59 BP 126 / 76; kl 05/01 00:59 BP 128 / 88; Pulse 80; Resp 18; Pulse Ox 99% on R/A; kl 04/30 22:20 Body Mass Index 24.03 (63.50 kg, 162.56 cm) vc1 07 22:20 Pain Scale: Adult vc1 Augusto Coma Score: 04/30 22:24 Eye Response: spontaneous(4). Motor Response: obeys commands(6). Verbal Response: vc1 oriented(5). Total: 15. 05/01 00:40 Eye Response: spontaneous(4). Motor Response: obeys commands(6). Verbal Response: sp4 oriented(5). Total: 15. 04/30 22:24 oriented but not forming complete sentences vc1 NIH Stroke Scale Scores: 05/01 00:40 NIHSS Score: 0 sp4 ED Course: 04/30 22:11 Patient arrived in ED. ja2 22:14 Mark Guajardo MD is Attending Physician. sp4 22:22 Triage completed. vc1 22:29 Arm band placed on left wrist. vc1 22:30 Patient has correct armband on for positive identification. Placed in gown. Bed in low vc1 position. Call light in reach. Pulse ox on. NIBP on. 22:30 Inserted saline lock: 20 gauge in right antecubital area, using aseptic technique. kl Blood collected. 22:40 Seizure precautions initiated. kl 22:40 Basic Metabolic Panel Sent. kl 22:40 CBC with Diff Sent. kl 22:40 Type And Screen Sent. kl 22:40 Urinalysis w/ reflexes Sent. kl 23:24 CT Head C Spine In Process Unspecified. EDMS 05/01 00:09 No apparent distress. Resting quietly. Appears to be sleeping. kl 01:19 No provider procedures requiring assistance completed. IV discontinued, intact, kl bleeding controlled, No redness/swelling at site. Pressure dressing applied. Administered Medications: 04/30 22:30 Drug: NS 0.9% IV 1000 ml Route: IV; Rate: 1 bolus; Site: right antecubital; 05/01 00:56 Follow up: IV Status: Completed infusion; IV Intake: 1000ml 04/30 22:30 Drug: morphine IVP or IV 4 mg Route: IVP; Infused Over: 4 mins; Site: right antecubital; 07/12 01:22 Follow up: Response: No adverse reaction 04/30 22:35 Drug: Ondansetron IVP 4 mg Route: IVP; Site: right antecubital; 05/01 01:22 Follow up: Response: No adverse reaction 04/30 22:38 Drug: Ketorolac IVP 30 mg Route: IVP; Site: right antecubital; 05/01 01:22 Follow up: Response: No adverse reaction 04/30 22:41 Drug: Ativan IVP 1 mg Route: IVP; Site: right antecubital; 05/01 01:22 Follow up: Response: No adverse reaction 04/30 23:38 Drug: morphine IVP or IV 4 mg Route: IVP; Infused Over: 4 mins; Site: right antecubital; 05/01 01:22 Follow up: Response: No adverse reaction; Pain is decreased 00:50 Drug: metoCLOPramide IVP 10 mg Route: IVP; Site: right antecubital; 01:22 Follow up: Response: No adverse reaction Medication: 04/30 22:30 VIS not applicable for this client. vc1 Intake: 05/01 00:56 IV: 1000ml; Total: 1000ml. Outcome: 00:51 Discharge ordered by sp4 01:19 Discharged to home ambulatory, with family. 01:19 Condition: good 01:19 Discharge instructions given to patient, family, Instructed on discharge instructions, follow up and referral plans. medication usage, Demonstrated understanding of instructions, follow-up care, medications, Prescriptions given X 1. 01:23 Patient left the ED. NIH Stroke Scale - NIH Stroke Score Date: 05/01/2023 Time: 00:40 Total Score = 0 10. Dysarthria (speech clarity - read or repeat words) - 0(Normal) 11. Extinction and Inattention (visual/tactile/auditory/spatial/personal) - 0(No abnormality) 1a. Level of Consciousness (LOC) - 0(Alert) 1b. Level of Consciousness (LOC) (Month \\T\\ Age) - 0(Both) 1c. LOC Commands (Open \\T\\ Closes Eyes/Mine Engineering Manager) - 0(Both) 2. Best Gaze (Lateral Gaze Paresis) - 0(Normal) 3. Visual Field Loss - 0(No visual loss) 4. Facial Palsy - 0(Normal) 5a. Left Arm: Motor (10-second hold) - 0(No drift) 5b. Right Arm: Motor (10-second hold) - 0(No drift) 6a. Left Leg: Motor (5-second hold - always test supine) - 0(No drift) 6b. Right Leg: Motor (5-second hold - always test supine) - 0(No drift) 7. Limb Ataxia (finger/nose \\T\\ heel/bailon - test with eyes open) - 0(Absent) 8. Sensory Loss (pinprick arms/legs/face) - 0(Normal) 9. Best Language: Aphasia (description/naming/reading) - 0(No aphasia) Initials: sp4 Signatures: Dispatcher [employer] EDSanam Domínguez RN RN Chacha Silva Vanessa, RN RN vc1 Mark Guajardo MD MD sp4 Corrections: (The following items were deleted from the chart) 04/30 22:24 22:22 Allergies: No Known Allergies; vc1 vc1 22:24 22:22 Allergies: lamotrigine; vc1 vc1
[2023-05-01] MEDS ORDERED: METOCLOPRAMIDE 10 MG/2mL INJ ONE (01:00)
[2023-05-01 03:12] VITALS: TEMP 97.1; O2SAT 99
[2023-05-01 03:22] VITALS: BP 128/88
--- NOTE | 2023-05-01 14:18 | RAD REPORT ---
EXAM DESCRIPTION: CT - Head C Spine Mpr Wo Con - 05/01/2023 5:08 am CLINICAL HISTORY: The patient is 47 years old and is Female; seizure, fall, head injury TECHNIQUE: Axial computed tomography images of the head/brain and cervical spine without intravenous contrast. Sagittal and coronal reformatted images were created and reviewed. This CT exam was pe rformed using one or more of the following dose reduction techniques: automated exposure control, a djustment of the mA and/or kV according to patient size, and/or use of iterative reconstruction techn ique. COMPARISON: No relevant prior studies available. FINDINGS: BRAIN: Unremarkable. No hemorrhage. No significant white matter disease. No edema. VENTRICLES: Unremarkable. No ventriculomegaly. SKULL: No acute fracture. SINUSES: Unremarkable as visualized. No acute sinusitis. MASTOID AIR CELLS: Unremarkable as visualized. No mastoid effusion. VERTEBRAE: Straightening of the normal cervical curvature is present. The vertebral body height s and alignment are maintained. There is no acute fracture. DISCS/SPINAL CANAL/NEURAL FORAMINA: The intervertebral disc spaces are maintained. No spinal marla l stenosis. SOFT TISSUES: The soft tissues are normal. LUNG APICES: Unremarkable as visualized. IMPRESSION: 1. No acute intracranial findings. 2. Straightening of the normal cervical curvature is present. Findings may be secondary to patien t position versus muscle spasm. Electronically signed by: Opal España MD 05/01/2023 12:10 AM CDT Due to temporary technical issues with the PACS/Fluency reporting system, reports are being signed by the in house radiologist without review as a courtesy to ensure prompt reporting. The interpreting r adiologist is fully responsible for the content of the report.
== END 2023-05-01 01:23 | disposition home or self-care (01) ==
LOC: ER 22:10
DX: S09.90XA Unspecified injury of head, initial encounter (principal); G44.309 Post-traumatic headache, unspecified, not intractable; G40.909 Epilepsy, unspecified, not intractable, without status epilepticus; W18.30XA Fall on same level, unspecified, initial encounter; Z88.5 Allergy status to narcotic agent
CPT/HCPCS: 85025; 80048; 36415; 83605; 70450; 72125; J2765; J2405; J7030

== ENCOUNTER 2023-08-05 20:46 | Emergency (ER) | payer OTHER ==
--- OUTSIDE RECORDS SUMMARY | 2023-08-05 20:49 | XMS REPORT | Continuity of Care Document ---
:1975 Author Organization [facility] t Address [address] [place] [address] Care Team Providers Name Role Phone JORDYN VILLALOBOS Primary Care Physician IBRAHIMA BENITEZ Attending Clinician Unavailable RUBY UGARTE Attending Clinician Unavailable Doctor Unassigned, [place] Attending Clinician Unavailable ERICKSON_Patricia Attending Clinician Unavailable CHARLENE FRASER Attending Clinician Unavailable ERLUCYON_R Admitting Clinician Unavailable CHARLENE FRASER Admitting Clinician Unavailable Payers Payer Name Policy Type Policy Number Effective Date Expiration Date Miladis BOYLE [id number] 2022 HEALTH PLAN 00:00:00 Problems Condition Condition Condition Status Onset Resolution Last Treating Co mments Source Name Details Category Date Date Treatment Clinician Date No known No known Disease Unive rs active active ity of problems problems [facility] Allergies, Adverse Reactions, Alerts Allergy Allergy Status Severity Reaction(s) Onset Inactive Treating Comm ents Source Name Type Date Date Clinician Acetamin Drug Active [place] ophen-Co Allergy 04-12 Health deine 00:00: 00 NO KNOWN Drug Active Univers ALLERGIE Class ity of S [facility] Social History Social Habit Start Date Stop Date Quantity Comments Source Exposure to 2023-03-22 2023-04-01 Not sure [place] [facility] SARS-CoV-2 (event) 00:00:00 13:09:00 Tobacco use and 2019-09-23 2019-09-23 Never used [facility] [place] exposure 00:00:00 00:00:00 Medical Branch Sex [facility]igned At [birth year] [facility] 00:00:00 00:00:00 Smoking Status Start Date Stop Date Source Tobacco [facility] Current every day smoker 2019-09-23 00:00[facility]00 [facility] Medications Ordered Filled Start Stop Current Ordering [...] Yes QD 1 (one) [facility] (Mobic) 15 -23 time each Heal th MG tablet 16:26: [...] 42 Atrovent Yes Atrovent [facility] HFA 17 04-12 HFA 17 Health MCG/ACT 16:26: mcg/actuat inhaler 42 ion aerosol inhaler meloxicam Yes QD 1 (one) [facility] (Mobic) 15 -23 time each Heal th MG tablet 16:26: day. 42 omeprazole Yes omeprazole U T (PriLOSEC) 04-12 [address] 16:26: capsule,de capsule 42 layed release propranolol Yes propranolo [facility] (Inderal) 6-23 l 20 mg Health 20 MG 16:26: tablet tablet 42 Tirzepatide 2022-0 Yes .5mL 0.5 mL. [facility] (Mounjaro) 6-23 Health 10 MG/0.5ML 16:26: solution 42 pen-injecto r lamoTRIgine 3-0 Yes [id number] 100mg QD Take 2 UT (LaMICtal 6-23 tablets Health XR) 50 mg 00:00: (100 mg tablet 00 total) by sustained-r mouth 1 elease 24 (one) time hour 24 hr each day. tablet lamoTRIgine 3-0 Yes [id number] 100mg QD Take 2 UT (LaMICtal 6-23 tablets Health XR) 50 mg 00:00: (100 mg tablet 00 total) by sustained-r mouth 1 elease 24 (one) time hour 24 hr each day. tablet DULoxetine 2022-0 Yes UT HCl 40 MG 5-27 Health capsule 00:00: delayed-rel 00 ease particles DULoxetine 2022-0 Yes UT HCl 40 MG 5-27 Health capsule 00:00: delayed-rel 00 ease particles amphetamine 3-0 Yes 1 (one) UT -dextroamph [...] Health 20 MG 00:00: tablet 00 albuterol 3-0 Yes UT 108 (90 2-22 Health Base) 00:00: MCG/ACT 00 inhaler predniSONE 3-0 Yes [facility] (Deltasone) 2-22 Health 20 MG 00:00: tablet 00 ciprofloxac 2021-0 Yes [id number] 500mg Take 1 Univers in HCl 500 - tablet by ity of mg tablet 00:00: mouth 2 [place] 00 (two) Medical times Branch daily. ibuprofen Yes [id number] 600mg Take 1 U nivers 600 mg 6- tablet by ity of tablet 00:00: mouth [place] 00 every 6 Medical (six) Branch hours as needed for Pain (scale 4-6). ondansetron Yes [id number] 4mg Take 1 Univers (ZOFRAN 6-01 tablet by ity of ODT) 4 mg 00:00: mouth [place] disintegrat 00 every 8 Medic al ing tablet (eight) Branch hours as needed for Nausea and Vomiting (N/V). traMADol 2018-10 Yes [id number] 50mg Take 1 Uni vers (ULTRAM) 50 2-04 tablet by ity of mg tablet 00:00: mouth [place] 00 every 6 Medical (six) Branch hours as needed for Pain (scale 7-10). Nitrofurant 2018-10 Yes [id number] 100mg Take 1 Univers oin&Nit. 2-04 capsule by ity o f Macrocryst 00:00: mouth [place] (MACROBID) 00 (two) Medical 100 mg times Branch capsule daily. traMADol 2018-10 Yes [id number] 50mg Take 1 Uni vers (ULTRAM) 50 2-04 tablet by ity of mg tablet 00:00: mouth [place] 00 every 6 Medical (six) Branch hours as needed for Pain (scale 7-10). Nitrofurant 2018-10 Yes [id number] 100mg Take 1 Univers oin&Nit. 2-04 capsule by ity o f [place]ryst 00:00: mouth 2 [place] (MACROBID) 00 (two) Medical 100 mg times Branch capsule daily. traMADol 2018-10 Yes [id number] 50mg Take 1 Uni vers (ULTRAM) 50 2-04 tablet by ity of mg tablet 00:00: mouth [place] 00 every 6 Medical (six) Branch hours as needed for Pain (scale 7-10). Nitrofurant 2018-10 Yes [id number] 100mg Take 1 Univers oin&Nit. 2-04 capsule [...] 2 it y of thoprim 00:00: (two) [place] (BACTRIM 00 times Medical SS) 400-80 daily. Branch mg tablet Vital Signs Vital Name Observation Time Observation Value Comments Source Systolic blood 2020-10-24 17:22:00 152 mm[Hg] [facility] Diastolic blood 2020-10-24 17:22:00 84 mm[Hg] [facility] Heart rate 2020-10-24 17:22:00 103 /min [facility] Body temperature 2020-10-24 17:22:00 36.83 Consuelo [facility] Respiratory rate 2020-10-24 17:22:00 18 /min [facility] Body weight 2020-10-24 17:22:00 74.844 kg [facility] BMI 2020-10-24 17:22:00 28.32 kg/m2 [facility] Oxygen saturation in 2020-10-24 17:22:00 98 /min [facility] Arterial blood by [facility] Pulse oximetry [place] Systolic blood 2020-10-24 17:22:00 152 mm[Hg] [facility] Branch Diastolic blood 2020-10-24 17:22:00 84 mm[Hg] Unive rsity of pressure [facility] Heart rate 2020-10-24 17:22:00 103 /min [facility] Body temperature 2020-10-24 17:22:00 36.83 Consuelo [facility] 2020-10-24 17:22:00 18 /min [facility] Body weight 2020-10-24 17:22:00 74.844 kg [facility] BMI 2020-10-24 17:22:00 28.32 kg/m2 [facility] Oxygen saturation in 2020-10-24 17:22:00 98 /min [facility] Arterial blood by [facility] Pulse oximetry Branch Procedures Procedure Date / Time Performing Clinician Source Performed AUTHORIZATION FOR 2021-03-30 05:01:00 Doctor Unassigned, No [facility] RELEASE OF [facility] NOTICE OF PRIVACY 2020-10-24 17:14:02 Doctor Unassigned, No Univ [facility] CONSENT/REFUSAL FOR 2020-10-24 17:13:47 Doctor Un[facility]igned, [facility] Encounters Start End Encounter Admission Attending Care Care Encounter Source Date/Time Date/Time Type Type Clinicians Facility Department ID 2023-05-01 Outpatient [facility] [id number] [place] 04:28:14 [id number] [facility] 2023-04-30 Outpatient [facility] [id number] [place] 20:04:32 [id number] [facility] 2023-04-01 Outpatient [facility] [id number] [place] 13:08:27 [id number] [facility] 2023-03-27 Outpatient [facility] [id number] [place] 20:04:03 [id number] [facility] 2023-03-13 Outpatient [facility] [id number] [place] 08:29:22 [id number] [facility] 2023-03-07 Outpatient [facility] [id number] [place] 08:40:54 [id number] [facility] 2022-12-19 Outpatient [facility] [id number] [place] 14:21:55 [id number] [facility] 2023-10-09 2023-10-09 Outpatient ROBERT, [facility] [id number] [place] 11:30:00 11:30:00 IBRAHIMA Munoz 2023-04-12 2023-04-12 Telemedici BINTA Benitez 6410 [id number] [place] 16:30:00 17:10:03 ne Ibrahima REDDY [id number] [facility] [id number] 2023-04-01 2023-04-01 Outpatient [facility] [id number] UT 13:30:00 15:16:09 Health 2023-03-25 2023-03-25 Outpatient [facility] [id number] [place] 13:30:00 13:30:00 [facility] 2023-02-18 2023-02-18 Outpatient SHANEL, [facility] [id number] [place] 13:00:00 13:00:00 [facility] 2021-03-30 2021-03-30 Orders Doctor EMILIA [id number] 00:00:00 00:00:00 Only Unassigned, TERI [id number] [place] [facility] [id number] 2021-03-30 2021-03-30 Orders Doctor EMILIA [id number] Univers 00:00:00 00:00:00 Only Unassigned, TERI [id number] ity of [place] [facility] [id number] [place] as [id number] [address] 2021-03-21 2021-03-21 Emergency X [facility] ERT [id number] Univers 18:52:00 18:52:00 ity of [facility] 2021-03-16 2021-03-16 Outpatient PATTI_Patricia [facility] [id number] [place] 10:43:00 10:43:00 [facility] 2020-10-24 2020-10-24 Emergency [place] [id number] 11:25:00 12:09:00 [place] [id number] [place] [id number] [place] [id number] 2020-10-24 2020-10-24 Emergency [facility] [id number] Univers 11:25:00 12:09:00 [place] [id number] i ty [facility] [id number] [facility] [place] [id number] [facility] 084 Branch 2020-10-24 2020-10-24 Emergency X [facility] ERT [id number] Univers 11:25:00 11:25:00 ity of [facility] 2020-10-24 2020-10-24 Orders Doctor NIETO [id number] Univers 00:00:00 00:00:00 Only Unassigned, TERI [id number] ity of [place] [facility] [id number] Rafael [id number] [facility] 009 Branch 2020-10-24 2020-10-24 Orders Doctor EMILIA [id number] 00:00:00 00:00:00 Only Unassigned, TERI [id number] [place] [facility] [id number] 2019-09-22 2019-09-23 Emergency X BRIA [facility] ERT [id number] Univers 23:13:36 01:14:00 CHARLENE mckeon [facility] Results This patient has no known results.
[2023-08-05] MEDS ORDERED: NA CHLORIDE 0.9% 1,000 ML ONE (21:46)
[2023-08-05 22:06] LABS: Hematocrit 34.6 % (36.0-45.0); Lymphocytes % 20.1 % (15.3-44.8); MCV 95.4 fL (80-100); MPV 7.5 fL (7.6-11.3); Platelets 324 thou/uL (152-406); RBC Red Blood Cell Count 3.63 M/uL (3.86-4.86)
[2023-08-05 22:32] LABS: ALT/SGPT 14 U/L (13-56); AST/SGOT 12 U/L (15-37); Albumin 3.1 g/dL (3.4-5.0); Alkaline Phosphatase 54 U/L (45-117); BUN Blood Urea Nitrogen 7 mg/dL (7-18); Bicarbonate 27 mEq/L (21-32); Bilirubin Total 0.2 mg/dL (0.2-1.0); Glomerular Filtration Rate 89 ml/min (=/>90); Glucose Level 98 mg/dL (74-106); Potassium 3.1 mEq/L (3.5-5.1); Protein, Total 6.7 g/dL (6.4-8.2); Sodium Level 136 mEq/L (136-145)
[2023-08-05 22:33] LABS: Bilirubin Direct < 0.1 mg/dL (0-0.2); Bilirubin Indirect, Calculated ND mg/dL (0.2-0.8)
--- NOTE | 2023-08-05 23:02 | EDPHYS ---
Physician Documentation [facility] Name: Heather Nixon Age: 47 yrs Sex: Female : 1975 Arrival Date: 08/05/2023 Time: 20:46 Bed 5 Private MD: VIVIAN Physician Sami Kumar HPI: 08/05 22:53 This 47 yrs old Female presents to ER via EMS with complaints of Anxiety. sharla 22:53 lupus pain, anxious. Onset: The symptoms/episode began/occurred today. Severity of sharla symptoms: At their worst the symptoms were mild in the emergency department the symptoms are unchanged. The patient has experienced similar episodes in the past, several times. Historical: - Allergies: 20:58 Codeine; jj7 - PMHx: 20:58 Crohn's; High Cholesterol; Kidney stones; Lupus; Seizure; jj7 - PSHx: 20:58 Appendectomy; Total abdominal hysterectomy; TBI SURGERY; jj7 - Immunization history:: Adult Immunizations up to date, Client reports receiving the 2nd dose of the Covid vaccine. - Social history:: Smoking status: Reported history of juuling and/or vaping. Patient/guardian denies using alcohol, street drugs. ROS: 22:54 Constitutional: Negative for fever, chills, and weight loss, Eyes: Negative for injury, sharla pain, redness, and discharge, ENT: Negative for injury, pain, and discharge, Neck: Negative for injury, pain, and swelling, Cardiovascular: Negative for chest pain, palpitations, and edema, Respiratory: Negative for shortness of breath, cough, wheezing, and pleuritic chest pain, Back: Negative for injury and pain, : Negative for injury, bleeding, discharge, and swelling, MS/Extremity: Negative for injury and deformity, Skin: Negative for injury, rash, and discoloration, Neuro: Negative for headache, weakness, numbness, tingling, and seizure, Psych: Negative for depression, anxiety, suicide ideation, homicidal ideation, and hallucinations, Allergy/Immunology: Negative for hives, rash, and allergies, Endocrine: Negative for neck swelling, polydipsia, polyuria, polyphagia, and marked weight changes, Hematologic/Lymphatic: Negative for swollen nodes, abnormal bleeding, and unusual bruising, 22:54 Abdomen/GI: Positive for nausea, Exam: 22:55 Constitutional: This is a well developed, well nourished patient who is awake, alert, sharla and in no acute distress. Head/Face: Normocephalic, atraumatic. Eyes: Pupils equal round and reactive to light, extra-ocular motions intact. Lids and lashes normal. Conjunctiva and sclera are non-icteric and not injected. Cornea within normal limits. Periorbital areas with no swelling, redness, or edema. ENT: Nares patent. No nasal discharge, no septal abnormalities noted. Tympanic membranes are normal and external auditory canals are clear. Oropharynx with no redness, swelling, or masses, exudates, or evidence of obstruction, uvula midline. Mucous membranes moist. Neck: Trachea midline, no thyromegaly or masses palpated, and no cervical lymphadenopathy. Supple, full range of motion without nuchal rigidity, or vertebral point tenderness. No Meningismus. Chest/axilla: Normal chest wall appearance and motion. Nontender with no deformity. No lesions are appreciated. Cardiovascular: Regular rate and rhythm with a normal S1 and S2. No gallops, murmurs, or rubs. Normal PMI, no JVD. No pulse deficits. Respiratory: Lungs have equal breath sounds bilaterally, clear to auscultation and percussion. No rales, rhonchi or wheezes noted. No increased work of breathing, no retractions or nasal flaring. Abdomen/GI: Soft, non-tender, with normal bowel sounds. No distension or tympany. No guarding or rebound. No evidence of tenderness throughout. Back: No spinal tenderness. No costovertebral tenderness. Full range of motion. Female : Normal external genitalia. Skin: Warm, dry with normal turgor. Normal color with no rashes, no lesions, and no evidence of cellulitis. MS/ Extremity: Pulses equal, no cyanosis. Neurovascular intact. Full, normal range of motion. Neuro: Awake and alert, GCS 15, oriented to person, place, time, and situation. Cranial nerves II-XII grossly intact. Motor strength 5/5 in all extremities. Sensory grossly intact. Cerebellar exam normal. Normal gait. Psych: Awake, alert, with orientation to person, place and time. Behavior, mood, and affect are within normal limits. 22:55 ECG was reviewed by the Attending Physician. Vital Signs: 20:53 BP 115 / 74; Pulse 81; Resp 19; Temp 98; Pulse Ox 97% ; Weight 64.41 kg; Height 5 ft. 4 j7 in. ; Pain 0/10; 22:05 BP 113 / 79; Pulse 82; Resp 16; Pulse Ox 95% on R/A; jb4 22:49 BP 123 / 71; Pulse 77; Resp 16; Pulse Ox 100% on R/A; jb4 20:53 Body Mass Index 24.37 (64.41 kg, 162.56 cm) [facility] 20:53 Pain Scale: Adult [facility] MDM: 20:56 Patient medically screened. [facility] 22:56 Data reviewed: vital signs, nurses notes, lab test result(s), EKG. Consideration of sharla Admission/Observation Escalation of care including admission/observation considered. I considered the following discharge prescriptions or medication management in the emergency department Medications were administered in the Emergency Department. See MAR. Independent interpretation of the following test(s) in the Emergency Department EKG: See my EKG interpretation above. Test considered but Not performed: X-ray: no cxr. Historians other than the Patient: EMS: ems well informed. Care significantly affected by the following chronic conditions: crohns, kidney stones, seizures. Counseling: I had a detailed discussion with the patient and/or guardian regarding the historical points, exam findings, and any diagnostic results supporting the discharge/admit diagnosis, lab results, the need for outpatient follow up, for definitive care, a family practitioner, a psychiatrist. 08/05 20:57 Order name: Acetaminophen; Complete Time: 22:52 [facility] 08/05 20:57 Order name: Basic Metabolic Panel; Complete Time: 22:52 [facility] 08/05 20:57 Order name: CBC with Diff; Complete Time: 22:52 [facility] 08/05 20:57 Order name: ETOH Level; Complete Time: 22:52 [facility] 08/05 20:57 Order name: Hepatic Function; Complete Time: 22:52 [facility] 08/05 20:57 Order name: PT-INR; Complete Time: 22:52 [facility] 08/05 20:57 Order name: Test, Urine [facility] 08/05 20:57 Order name: Ptt, Activated; Complete Time: 22:52 [facility] 08/05 20:57 Order name: Salicylate; Complete Time: 22:52 [facility] 08/05 20:57 Order name: Urinalysis w/ reflexes [facility] 08/05 20:57 Order name: Urine Drug Screen [facility] 08/05 20:57 Order name: EKG; Complete Time: 20:58 [facility] 08/05 20:57 Order name: EKG - Nurse/Tech; Complete Time: 22:04 [facility] 08/05 20:57 Order name: IV Saline Lock; Complete Time: 21:37 [facility] 08/05 20:57 Order name: Labs collected and sent; Complete Time: 21:37 [facility] 08/05 20:57 Order name: Suicide Screening ([place]); Complete Time: 21:37 [facility] EC:55 Rate is 82 beats/min. Rhythm is regular. QRS [place] is Normal. [place] interval is normal. QRS sharla interval is normal. QT interval is normal. No Q waves. T waves are Normal. No ST changes noted. Clinical impression: NSR w/ Non-specific ST/T Changes and No evidence of ischemia. Interpreted by me. Reviewed by me. Administered Medications: 22:04 Drug: NS 0.9% IV 1000 ml IV at 1 bolus Per protocol; 1000 mL bolus Route: IV; Rate: 1 jb4 bolus; Site: right antecubital; 23:14 Drug: Potassium PO Effervescent Tablet 50 mEq PO once; dissolve in 4 ounces of water or jb4 juice Route: PO; Disposition Summary: 08/05/23 23:01 Discharge Ordered Notes: Location: Home sharla Problem: new sharla Symptoms: have improved sharla Condition: Stable sharla Diagnosis - Adjustment disorder with anxiety sharla - Anxiety disorder, unspecified sharla - Systemic lupus erythematosus, unspecified sharla - Hypokalemia sharla Followup: shrala - With: Private Physician - When: 2 - 3 days - Reason: Recheck today's complaints, Continuance of care, Re-evaluation by your physician Discharge Instructions: - Discharge Summary Sheet sharla - Potassium Content of Foods sharla - Generalized Anxiety Disorder, Adult sharla - Hypokalemia sharla - Supporting Someone With Anxiety sharla - Managing Anxiety, Adult sharla Forms: - Medication Reconciliation Form sharla - Thank You Letter sharla - Antibiotic Education sharla - Prescription Opioid Use sharla - Patient Portal Instructions sharla - Leadership Thank You Letter [facility] Prescriptions: - Hydroxyzine HCl 25 mg Oral Tablet - take 1 tablet ORAL route every 6 hours As needed; 30 tablet; Refills: 0, sharla Product Selection Permitted Signatures: Dispatcher [employer] Sami Dixon MD MD cha Bryson, James, RN RN jb4 Cecelia Byers, RN RN jj7
--- NOTE | 2023-08-05 23:02 | ER ---
Nurse's Notes [facility] Name: Heather Nixon Age: 47 yrs Sex: Female : 1975 Arrival Date: 08/05/2023 Time: 20:46 Bed 5 Private MD: Diagnosis: Adjustment disorder with anxiety;Anxiety disorder, unspecified;Systemic lupus erythematosus, unspecified;Hypokalemia Presentation: 08/05 20:53 Chief complaint: Patient states: PT STATES SHE STARTED FEELING DIZZY AND DISORIENTED jj7 TODAY SO SHE CALLED 911. WENT OUTSIDE TO WAIT FOR EMS AND THINKS SHE MIGHT HAVE FALLEN. DOESN'T FEEL DISORIENTATED NOW OR DIZZY BUT JUST DOESN'T FEEL RIGHT EMS states: PT WAS DIZZY AND DISORIENTATED. TOOK TRAMADOL 50MG TODAY INSTEAD OF EVERY 4-6 HRS SHE TOOK THEM EVERY 2 HRS OR EVEN EVERY 30 MINUTES AND TOOK A TOTAL OF 8 TABS TODAY. Coronavirus screen: At this time, the client does not indicate any symptoms associated with coronavirus-19. Ebola Screen: No symptoms or risks identified at this time. Initial Sepsis Screen: Does the patient meet any 2 criteria? No. Patient's initial sepsis screen is negative. Does the patient have a suspected source of infection? No. Patient's initial sepsis screen is negative. Risk Assessment: Do you want to hurt yourself or someone else? Patient reports no desire to harm self or others. Onset of symptoms was August 05, 2023. 20:53 Method Of Arrival: EMS: [facility] 20:53 Acuity: KASHIF 3 jj7 Triage Assessment: 20:58 General: Appears in no apparent distress. comfortable, Behavior is cooperative, jj7 appropriate for age, anxious. Pain: Denies pain. Neuro: No deficits noted. Historical: - Allergies: 20:58 Codeine; jj7 - PMHx: 20:58 Crohn's; High Cholesterol; Kidney stones; Lupus; Seizure; jj7 - PSHx: 20:58 Appendectomy; Total abdominal hysterectomy; TBI SURGERY; jj7 - Immunization history:: Adult Immunizations up to date, Client reports receiving the 2nd dose of the Covid vaccine. - Social history:: Smoking status: Reported history of juuling and/or vaping. Patient/guardian denies using alcohol, street drugs. Screenin:14 [facility] ED Fall Risk Assessment (Adult) History of falling in the last 3 months, jb4 including since admission No falls in past 3 months (0 pts) Confusion or Disorientation No (0 pts) Score/Fall Risk Level 0 - 2 = Low Risk Oriented to surroundings, Maintained a safe environment. Abuse screen: Denies threats or abuse. Nutritional screening: No deficits noted. Tuberculosis screening: No symptoms or risk factors identified. Assessment: 21:15 General: Appears in no apparent distress. comfortable, Behavior is calm, cooperative, jb4 appropriate for age. Pain: Denies pain. Neuro: Level of Consciousness is awake, alert, obeys commands, Oriented to person, place, time, situation. Cardiovascular: Patient's skin is warm and dry. Respiratory: Airway is patent Respiratory effort is even, unlabored, Respiratory pattern is regular, symmetrical. GI: No signs and/or symptoms were reported involving the gastrointestinal system. : No signs and/or symptoms were reported regarding the genitourinary system. EENT: No signs and/or symptoms were reported regarding the EENT system. Derm: Skin is intact, Skin is pink, warm \T\ dry. Musculoskeletal: Circulation, motion, and sensation intact. Range of motion: intact in all extremities. 22:49 Reassessment: Patient appears in no apparent distress at this time. Patient and/or jb4 family updated on plan of care and expected duration. Pain level reassessed. Patient is alert, oriented x 3, equal unlabored respirations, skin warm/dry/pink. Vital Signs: 20:53 BP 115 / 74; Pulse 81; Resp 19; Temp 98; Pulse Ox 97% ; Weight 64.41 kg; Height 5 ft. 4 7 in. ; Pain 0/10; 22:05 BP 113 / 79; Pulse 82; Resp 16; Pulse Ox 95% on R/A; jb4 22:49 BP 123 / 71; Pulse 77; Resp 16; Pulse Ox 100% on R/A; jb4 20:53 Body Mass Index 24.37 (64.41 kg, 162.56 cm) j7 20:53 Pain Scale: Adult 7 ED Course: 20:47 Patient arrived in ED. j6 20:53 Cecelia Byers RN is Primary Nurse. j7 20:56 Sami Kumar MD is Attending Physician. [facility] 20:58 Triage completed. jj7 20:58 Arm band placed on right wrist. Patient placed in an exam room, on a stretcher, on jj7 oxygen, on quality assurance monitor chassis, on pulse oximetry. 22:04 Initial lab(s) drawn, by me, sent to lab. Inserted saline lock: 18 gauge in right jb4 antecubital area, using aseptic technique. Blood collected. 23:14 Patient has correct armband on for positive identification. Bed in low position. Call jb4 light in reach. Side rails up X 1. 23:14 No provider procedures requiring assistance completed. IV discontinued, intact, jb4 bleeding controlled, No redness/swelling at site. Pressure dressing applied. Administered Medications: 22:04 Drug: NS 0.9% IV 1000 ml IV at 1 bolus Per protocol; 1000 mL bolus Route: IV; Rate: 1 jb4 bolus; Site: right antecubital; 23:14 Drug: Potassium PO Effervescent Tablet 50 mEq PO once; dissolve in 4 ounces of water or jb4 juice Route: PO; Outcome: 23:01 Discharge ordered by . [facility] 23:14 Discharged to home ambulatory, jb4 23:14 Condition: stable 23:14 Discharge instructions given to patient, Instructed on discharge instructions, follow up and referral plans. medication usage, Demonstrated understanding of instructions, follow-up care, medications, Prescriptions given X 1, 23:16 Patient left the ED. jb4 Signatures: Sami Kumar MD MD cha Bryson, James, RN RN jb4 Naomi Carrera jj6 Cecelia Byers RN RN jj7
[2023-08-05] MEDS ORDERED: POTASSIUM 25 MEQ EFFERV TAB ONE (23:17)
[2023-08-05 23:41] LABS: Specific Gravity 1.006 (1.005-1.030)
[2023-08-05 23:54] LABS: Barbiturates NEGATIVE (NEGATIVE); Benzodiazepines POSITIVE (NEGATIVE); Cocaine NEGATIVE (NEGATIVE); METHAMPHETAM NEGATIVE (NEGATIVE); Opiates NEGATIVE (NEGATIVE); Phencyclidine POSITIVE (NEGATIVE); THC Cannibis NEGATIVE (NEGATIVE)
[2023-08-05 23:59] LABS: Specific Gravity 1.006 (1.005-1.030); Urine Bacteria <20 /HPF (<20); Urine Bilirubin NEGATIVE (Negative); Urine Blood Negative (Negative); Urine Clarity Turbid (Clear); Urine Color Colorless (Yellow); Urine Glucose NEGATIVE (Negative); Urine Mucus Slight /HPF (None Seen); Urine Protein NEGATIVE (Negative); Urine RBC None Seen /HPF (None Seen); Urine Urobilinogen Normal (Normal)
[2023-08-06 00:03] LABS: Methadone ND (NEGATIVE)
--- NOTE | 2023-08-06 11:19 | EKG ---
Test Date: 2023-08-05 Test Time: 21:56:39 Pump Rebuilder: RANDALL MEASUREMENT RESULTS: Intervals: Rate: 82 MA: 134 QRSD: 80 QT: 386 QTc: 450 [place]: P: 52 MA: 134 QRS: 34 T: 73 INTERPRETIVE STATEMENTS: Normal sinus rhythm Nonspecific ST and T wave abnormality Abnormal ECG Compared to ECG 06/01/2021 13:21:48 ST (T wave) deviation now present Electronically Signed On 08-06-23 11:17:45 CDT by Terry Garcia
== END 2023-08-05 23:16 | disposition home or self-care (01) ==
LOC: ER 20:46
DX: F43.22 Adjustment disorder with anxiety (principal); E87.6 Hypokalemia; M32.9 Systemic lupus erythematosus, unspecified; Z88.5 Allergy status to narcotic agent
CPT/HCPCS: 93005; 85025; 81001; 80048; 36415; 81025; 85610; 80076; 85730; 80307; 99285; 80143; 80179; 82077; J7030